=== PATIENT | female | born 1950 | race Caucasian/White ===

== ENCOUNTER 2017-04-04 13:01 | Emergency (ER) | payer BC ==
--- NOTE | 2017-04-04 14:01 | RAD ---
SINGLE VIEW OF THE CHEST: Comparison: None. History: Cough, left lower extremity swelling and pain. FINDINGS: Single view of the chest shows a normal sized cardiomediastinal silhouette with atherosclerotic calci fications in the aorta. There is no evidence of consolidation, mass, or pleural effusion. IMPRESSION: No evidence of acute cardiopulmonary disease. POS: [facility]
--- NOTE | 2017-04-04 14:55 | ULT ---
LEFT LOWER EXTREMITY VENOUS ULTRASOUND: Date: 04/04/17 HISTORY: Left lower extremity pain and swelling for 2-3 weeks. COMPARISON: None. TECHNIQUE: Multiplanar Godoy scale and color Doppler images were obtained in a left lower extremity venous ultra sound. Spectral analysis of the Doppler waveforms were performed. FINDINGS: There is significant thrombus in the left lower extremity. This involves the left common femoral vei n, profunda femoral vein, superficial femoral vein, and popliteal vein. These vessels show lack of fl ow and incomplete compression consistent with thrombus. The left posterior tibial vein and greater sa phenous vein show no evidence of thrombus. IMPRESSION: Extensive deep venous thrombosis in the left leg as above. POS: [facility]
[2017-04-04] MEDS ORDERED: Rivaroxaban 10 MG TAB ONE (15:04)
[2017-04-04 15:53] LABS: Anion Gap 15 mmol/L (10-20); BUN (Urea Nitrogen) 10 mg/dL (9.8-20.1); Calc. Creatinine Clearance 0 mL/min (70-130); Calcium 8.8 mg/dL (7.8-10.44); Carbon Dioxide 24 mmol/L (23-31); Chloride 104 mmol/L (98-107); Estimated GFR-MDRD 84; Glucose 124 mg/dL (80-115); Sodium 139 mmol/L (136-145)
== END 2017-04-04 15:54 | disposition home or self-care (01) ==
LOC: SCSER 13:01
DX: I82.412 Acute embolism and thrombosis of left femoral vein (principal); I82.432 Acute embolism and thrombosis of left popliteal vein; Z87.891 Personal history of nicotine dependence
CPT/HCPCS: 71045; 80048; 85379; 96360

== ENCOUNTER 2017-10-19 19:44 | Emergency (ER) | payer BC ==
[2017-10-19 20:36] LABS: #Basophils 0.1 thou/uL (0.0-0.2); #Eosinphils 0.2 thou/uL (0.0-0.7); #Lymphocytes 2.4 thou/uL (1.20-3.40); #Monocytes 0.9 thou/uL (0.11-0.59); #Neutrophils 8.8 thou/uL (1.40-6.50); %Basophils 0.8 % (0.0-1.0); %Eosinophils 1.5 % (0.0-10.0); %Lymphocytes 19.1 % (21.0-51.0); %Monocytes 7.6 % (0.0-10.0); %Neutrophils 71.1 % (42.0-75.0); ALT (SGPT) 13 U/L (8-55); AST (SGOT) 20 U/L (5-34); Albumin 3.9 g/dL (3.4-4.8); Alkaline Phosphatase 88 U/L (40-150); Anion Gap 15 mmol/L (10-20); BUN (Urea Nitrogen) 13 mg/dL (9.8-20.1); Bilirubin, Total 0.3 mg/dL (0.2-1.2); Calc. Creatinine Clearance 0 mL/min (70-130); Calcium 10.5 mg/dL (7.8-10.44); Carbon Dioxide 27 mmol/L (23-31); Chloride 98 mmol/L (98-107); Estimated GFR-MDRD 68; Globulin 3.6 g/dL (2.4-3.5); Glucose 94 mg/dL (80-115); Hemoglobin 8.9 g/dL (12.0-16.0); Hypochromia SLIGHT = 6-15 cells (100X) (0-5/hpf); MDiff Complete? YES; Mean Corpuscular HGB CONC 30.8 g/dL (32.0-36.0); Mean Corpuscular Hemoglobin 21.1 pg (27.0-31.0); Mean Corpuscular Volume 68.5 fL (78.0-98.0); Mean Platelet Volume 5.6 fL (7.4-10.4); Microcytosis SLIGHT = 6-15 cells (100X) (0-5/hpf); PLT Morphology Comment Appears Increased; Platelet Count 498 thou/uL (130-400); Protein, Total 7.5 g/dL (6.0-8.3); Red Blood Cell (RBC) Count 4.24 mill/uL (4.20-5.40); Sodium 136 mmol/L (136-145); White Blood Cell (WBC) Count 12.4 thou/uL (4.8-10.8)
[2017-10-19 20:37] LABS: CKMB 0.6 ng/mL (0-6.6); Troponin I Less than 0.010 ng/mL (< 0.028)
--- NOTE | 2017-10-19 20:47 | RAD ---
SINGLE VIEW OF THE CHEST: 10/19/17 COMPARISON: 04/04/17 HISTORY: Chronic cough. FINDINGS: Single view of the chest shows the cardiomediastinal silhouette which is upper limits of normal in si ze with atherosclerotic calcifications in the aorta. There is no evidence of consolidation, mass, or pleural effusion. IMPRESSION: No evidence of acute cardiopulmonary disease. POS: [facility]
--- NOTE | 2017-10-19 22:11 | CT ---
CT ANGIOGRAM THORAX WITH IV CONTRAST AND 3D RECONSTRUCTIONS 10/19/17 HISTORY: Chronic cough which has worsened today. History of DVT. COMPARISON: None available. FINDINGS: No filling defects are seen in the pulmonary arteries to suggest a pulmonary embolus. Mild vascular calcifications are seen in the coronary arteries as well as involving the region of the aortic arch. The thoracic aorta is normal in caliber without evidence of an aortic dissection. There is a small right pleural effusion with associated atelectasis. Atelectasis is also present at t he left lung base. There is a small subcentimeter hypodense nodule left lobe of the thyroid gland with an adjacent punct ate calcification. There is suggestion of a larger heterogeneous nodule in the inferior pole left lob e of the thyroid gland measuring 1.6 cm. Visualized upper abdomen demonstrates a small amount of intraperitoneal free fluid. There is fluid ad jacent to the dome of the liver laterally on the right with what appears to be contour abnormality of the liver in this region. This could be related to subcapsular fluid collection, but this is difficu lt to definitively determine. Similar finding is seen in the lateral aspect of the right hepatic lobe , but this could represent a small peripherally based hypodense nodule within the right hepatic lobe. Calcifications are seen in the region of the chloe hepatis which are likely related to gallbladder ca lculi in a decompressed gallbladder. IMPRESSION: 1. Thyroid nodules. Non-emergent thyroid ultrasound suggested. 2. Small amount of ascites in the limited visualized upper abdomen. There is question of a small subcapsular collection adjacent to the dome of the liver. This is difficult to further evaluate. 3. Cholelithiasis. 4. No CT evidence of a pulmonary embolus. 5. Bibasilar atelectasis with small right pleural effusion. 6. Subcentimeter too small to characterize hypodense lesion lateral segment left hepatic lobe wi th low density focus seen lateral aspect right hepatic lobe measuring 1.3 cm which may represent a pe ripherally located difficult to characterize hypodense lesion. This could be related to small amount of fluid adjacent to the right hepatic lobe as well. 7. Mild cardiomegaly. POS: [facility]
== END 2017-10-19 22:39 | disposition home or self-care (01) ==
LOC: SCSER 19:44
DX: J98.11 Atelectasis (principal); J90 Pleural effusion, not elsewhere classified; R18.8 Other ascites; D72.829 Elevated white blood cell count, unspecified; R05 Cough; D47.3 Essential (hemorrhagic) thrombocythemia; E04.1 Nontoxic single thyroid nodule; K76.89 Other specified diseases of liver; K80.20 Calculus of gallbladder without cholecystitis without obstruction; F41.9 Anxiety disorder, unspecified; Z79.01 Long term (current) use of anticoagulants; Z79.899 Other long term (current) drug therapy
CPT/HCPCS: 71045; 71275; 80053; 82553; 83880; 84484; 85025; 93005; 96360; 96361

== ENCOUNTER 2017-11-09 15:15 | Outpatient (CLI) | payer BC ==
[2017-11-09 17:26] LABS: Hemoglobin A1c 5.1 % (4.0-6.0)
[2017-11-09 17:33] LABS: #Eosinphils 0.1 thou/uL (0.0-0.7); #Lymphocytes 1.3 thou/uL (1.20-3.40); #Monocytes 0.8 thou/uL (0.11-0.59); #Neutrophils 10.3 thou/uL (1.40-6.50); %Basophils 0.3 % (0.0-1.0); %Eosinophils 0.6 % (0.0-10.0); %Lymphocytes 10.1 % (21.0-51.0); %Monocytes 6.6 % (0.0-10.0); %Neutrophils 82.4 % (42.0-75.0); Anisocytosis SLIGHT = 6-15 cells (100X) (0-5/hpf); Hemoglobin 10.6 g/dL (12.0-16.0); Hypochromia SLIGHT = 6-15 cells (100X) (0-5/hpf); MDiff Complete? YES; Mean Corpuscular HGB CONC 30.1 g/dL (32.0-36.0); Mean Corpuscular Hemoglobin 22.9 pg (27.0-31.0); Mean Corpuscular Volume 75.9 fL (78.0-98.0); Mean Platelet Volume 7.1 fL (7.4-10.4); PLT Morphology Comment Appears Increased; Platelet Count 402 thou/uL (130-400); Poikilocytosis SLIGHT = 6-15 cells (100X) (0-5/hpf); RBC Distribution Width 23.2 % (11.5-14.5); Red Blood Cell (RBC) Count 4.64 mill/uL (4.20-5.40); White Blood Cell (WBC) Count 12.5 thou/uL (4.8-10.8)
[2017-11-09 17:36] LABS: ALT (SGPT) 12 U/L (8-55); AST (SGOT) 23 U/L (5-34); Albumin 3.7 g/dL (3.4-4.8); Alkaline Phosphatase 92 U/L (40-150); Anion Gap 14 mmol/L (10-20); BUN (Urea Nitrogen) 10 mg/dL (9.8-20.1); Bilirubin, Total 0.6 mg/dL (0.2-1.2); Calc. Creatinine Clearance 0 mL/min (70-130); Calcium 10.1 mg/dL (7.8-10.44); Carbon Dioxide 27 mmol/L (23-31); Chloride 99 mmol/L (98-107); Estimated GFR-MDRD 72; Globulin 3.6 g/dL (2.4-3.5); Glucose 86 mg/dL (80-115); Protein, Total 7.3 g/dL (6.0-8.3); Sodium 136 mmol/L (136-145)
--- NOTE | 2017-11-09 17:51 | RAD ---
RADIOGRAPH CHEST 2 VIEWS: Date: 11/09/17 Time: 5:00 p.m. HISTORY: 67-year-old female with chronic cough. COMPARISON: 10/19/17 FINDINGS: There is minimal blunting of the bilateral posterior costophrenic angles, and mild blunting of the bi lateral lateral costophrenic angles, a possibly new finding compared to the previous single view stud y. No pulmonary edema, cardiomegaly, consolidation, or pneumothorax. IMPRESSION: 1. Small right pleural effusion and tiny left pleural effusion. 2. No acute pulmonary findings. JN [] POS: [facility]
--- NOTE | 2017-11-10 15:16 | EKG ---
Test Reason : Blood Pressure : / mmHG Vent. Rate : 095 BPM Atrial Rate : 095 BPM P-R Int : 132 ms QRS Dur : 074 ms QT Int : 338 ms P-R-T Axes : 024 037 036 degrees QTc Int : 424 ms Normal sinus rhythm Normal ECG When compared with ECG of 19-OCT-2017 19:59, (Unconfirmed) No significant change was found Confirmed by ALIZE RIVERA, SBrian ([id number]) on 11/10/2017 3:15:30 PM Referred By: CLAYTON Confirmed By:DR. Tereza HERRMANN MD
== END 2017-11-09 15:16 | disposition home or self-care (01) ==
LOC: LABBT 15:15
PROVIDERS: ATTEND Surgery
DX: Z01.818 Encounter for other preprocedural examination (principal); K63.89 Other specified diseases of intestine; J90 Pleural effusion, not elsewhere classified
CPT/HCPCS: 71046; 80053; 82378; 83036; 85025; 86850; 86900; 86901; 93005; 93010

== ENCOUNTER 2017-11-09 16:00 | Inpatient (IN) | payer BC, MEDICARE ==
[2017-11-09 16:28] VITALS: BMI 26.5
[2017-11-10] MEDS ORDERED: cefOXitin 2 GM VIAL ONE (12:25)
[2017-11-10] MEDS ORDERED: Sodium Chloride 0.9% 100 ML ONE (12:25)
[2017-11-10] MEDS ORDERED: Fentanyl 250 MCG/5 ML VIAL ONE (12:29)
[2017-11-10] MEDS ORDERED: Albumin 5% 0 ML ONE (12:29)
[2017-11-10] MEDS ORDERED: Midazolam HCl 2 mg/2 ml Vial ONE (12:43)
[2017-11-10] MEDS ORDERED: SUGAMMADEX SODIUM 500 MG/5 ML VIAL ONE (14:09)
[2017-11-10] MEDS ORDERED: SUGAMMADEX SODIUM 200 MG/2 ML VIAL ONE (14:09)
[2017-11-10] MEDS ORDERED: Promethazine HCl 25 MG/ML VIAL IM PRN ×3 (14:16→15:17)
[2017-11-10] MEDS ORDERED: HYDROmorphone 2 MG/ML VIAL SLOW IVP PRN (14:16)
[2017-11-10] MEDS ORDERED: Ondansetron HCl/PF 4 MG/2 ML Vial IVP PRN ×3 (14:16→15:17)
[2017-11-10] MEDS ORDERED: Promethazine HCl 25 MG/ML VIAL SLOW IVP PRN (14:16)
[2017-11-10] MEDS ORDERED: hydrALAZINE 20 MG/ML VIAL SLOW IVP PRN (14:22)
--- NOTE | 2017-11-10 14:26 | OP ---
PREOPERATIVE DIAGNOSIS: Obstructing colon cancer. SURGEON: Inder Bloom M.D. PROCEDURE PERFORMED: Exploratory laparotomy, liver biopsy, biopsy of peritoneal implants, loop ileos sruthi. INDICATIONS: A 67-year-old female who had a colonoscopy yesterday for anemia and was found to have a complete obstruction at the hepatic flexure. FINDINGS: Advance carcinomatosis. Her liver was completely replaced with tumor. The pelvis was ful l of tumor, multiple peritoneal implants. PROCEDURE: After informed consent was obtained, the patient was taken to the operating room, given g eneral endotracheal anesthesia, placed in the supine position. The abdomen was prepped and draped in usual fashion. Midline incision was performed. The subcu divided sharply. The fascia incised and her liver was completely white with tumor. In fact, the colon and the liver were fused. I could not even tell what was colon and what was liver. The peritoneal surface had thousands of peritoneal imp lants and the pelvis was completely encompassed in tumor. Because of the obstruction, elected to do a loop ileostomy. First of all, piece of the liver was sent for biopsy as well as one of the periton eal implants. Then, I was finally able to find part of the right colon and found the terminal ileum and then just put a [place] on the ileum to veronica it. The skin was grasped with a Jan clamp in the right lower quadrant and a circular skin incision performed. Subcutaneous was excised. The fascia incised in a cruciate manner and dilated to 3 fingers. The ileum was brought in through this opening and secured to the posterior fascia with interrupted 3-0 Vicryls. The abdomen was thoroughly irriga kenny with saline and hemostasis assured. The fascia then closed with a running looped #1 PDS. Hemost asis achieved with electrocautery. Subcutaneous closed with interrupted 3-0 Vicryl and the skin clos ed with skin jessee. Sterile bandage was applied. Then, the ileum was secured to the anterior fasc ia with interrupted 3-0 Vicryl circumferentially. A red rubber catheter was brought through the mese ntery just below the ileum and secured to the skin with interrupted 2-0 Prolene suture to act as a br idge. Then, the ileum was opened with electrocautery and the ostomy matured with interrupted 3-0 Karan ryl sutures. A wafer was applied as well as the bag. The patient tolerated the procedure well and w as transferred to recovery in fair condition.
[2017-11-10] MEDS ORDERED: Fentanyl 100 MCG/2 ML VIAL ONE ×2 (14:39→15:30)
[2017-11-10] MEDS ORDERED: Ondansetron HCl/PF 4 MG/2 ML Vial ONE (15:12)
[2017-11-10] MEDS ORDERED: Lidocaine 1% PF 5 ML VIAL ONE (15:12)
[2017-11-10] MEDS ORDERED: PHENYLEPHRINE-NS 100 MCG/ML 10 ML SYRINGE ONE (15:12)
[2017-11-10] MEDS ORDERED: PROPOFOL 200 MG/20 ML VIAL ONE (15:12)
[2017-11-10] MEDS ORDERED: ePHEDrine/0.9% NaCl/PF SYRINGE 50 mg/10 ml ONE (15:12)
[2017-11-10] MEDS ORDERED: Ketorolac Tromethamine 30 MG/ML VIAL ONE (15:12)
[2017-11-10] MEDS ORDERED: diphenhydrAMINE 50 MG/ML VIAL IVP PRN (15:17)
[2017-11-10] MEDS ORDERED: Zolpidem Tartrate 5 MG TAB PO PRN (15:17)
[2017-11-10] MEDS ORDERED: diphenhydrAMINE 25 MG CAP PO PRN (15:17)
[2017-11-10] MEDS ORDERED: diphenhydrAMINE 50 MG/ML VIAL IM PRN (15:17)
[2017-11-10] MEDS ORDERED: Naloxone HCl 0.4 mg/ml Vial IV PRN (15:17)
[2017-11-10] MEDS ORDERED: Morphine CADD 1 MG/ML CADD IVPB PRN (15:17)
[2017-11-10] MEDS ORDERED: Communication Order-Pharmacy FS SCH (15:30)
[2017-11-10] MEDS: Sodium Chloride 0.9% 1,000 ML IV SCH ×2 (17:19→21:30)
[2017-11-10] MEDS: Acetaminophen 1,000 MG in Premix Bag 1 BAG IVPB SCH ×2 (17:45→23:13)
[2017-11-10] MEDS: Ketorolac Tromethamine 30 MG/ML VIAL IVP SCH ×2 (17:45→23:15)
[2017-11-10] MEDS: cefOXitin 2 GM in Sodium Chloride 0.9% 100 ML IVPB SCH (19:39)
[2017-11-10] MEDS: Famotidine/PF 20 mg/2ml Vial SLOW IVP SCH (19:39)
[2017-11-10] MEDS: Famotidine 20 MG TAB PO SCH (19:40)
[2017-11-11] MEDS: cefOXitin 2 GM in Sodium Chloride 0.9% 100 ML IVPB SCH (03:04)
[2017-11-11] MEDS: Ketorolac Tromethamine 30 MG/ML VIAL IVP SCH ×4 (05:25→23:02)
[2017-11-11] MEDS: Acetaminophen 1,000 MG in Premix Bag 1 BAG IVPB SCH ×2 (05:25→12:05)
[2017-11-11 06:17] LABS: Anion Gap 12 mmol/L (10-20); BUN (Urea Nitrogen) 12 mg/dL (9.8-20.1); Calc. Creatinine Clearance 66 mL/min (70-130); Calcium 8.1 mg/dL (7.8-10.44); Carbon Dioxide 23 mmol/L (23-31); Chloride 105 mmol/L (98-107); Estimated GFR-MDRD 69; Glucose 98 mg/dL (80-115); Potassium 4.4 mmol/L (3.5-5.1); Sodium 136 mmol/L (136-145)
[2017-11-11 07:45] LABS: #Lymphocytes 0.8 thou/uL (1.20-3.40); #Monocytes 0.9 thou/uL (0.11-0.59); #Neutrophils 8.3 thou/uL (1.40-6.50); %Eosinophils 0.1 % (0.0-10.0); %Monocytes 8.6 % (0.0-10.0); %Neutrophils 83.3 % (42.0-75.0); Hemoglobin 9.7 g/dL (12.0-16.0); Mean Corpuscular HGB CONC 30.4 g/dL (32.0-36.0); Mean Corpuscular Hemoglobin 23.6 pg (27.0-31.0); Mean Corpuscular Volume 77.6 fL (78.0-98.0); Mean Platelet Volume 7.1 fL (7.4-10.4); Platelet Count 305 thou/uL (130-400); RBC Distribution Width 22.3 % (11.5-14.5); Red Blood Cell (RBC) Count 4.13 mill/uL (4.20-5.40)
[2017-11-11 07:46] LABS: Band 6 % (5-11); Lymphocytes 9 % (21-51); MDiff Complete? YES; Monocytes 6 % (0-10); Neutrophil 79 % (42-75)
[2017-11-11] MEDS: Sodium Chloride 0.9% 1,000 ML IV SCH ×3 (09:07→23:04)
[2017-11-11] MEDS: Enoxaparin Sodium 40 MG/0.4 ML SYRINGE SC SCH (09:08)
[2017-11-11] MEDS: Famotidine/PF 20 mg/2ml Vial SLOW IVP SCH ×2 (09:08→20:15)
[2017-11-11] MEDS: Famotidine 20 MG TAB PO SCH ×2 (09:13→20:20)
--- NOTE | 2017-11-11 11:27 | CT ---
CONTRAST ENHANCED CT OF THE CHEST, ABDOMEN AND PELVIS: History: Carcinomatosis with obstruction. Technique: Contrast enhanced images of the chest, abdomen, and pelvis were obtained. FINDINGS: Images demonstrate small bilateral pleural effusions. Bibasilar areas of atelectasis seen. The abdomen and pelvis demonstrates a moderate amount of free intraperitoneal air. A small amount of intraperitoneal fluid is seen. Along much of the anterior peritoneum there is a large area of soft tissue density concerning for ext ensive intraperitoneal carcinomatosis. A right lower abdominal anterior ileostomy is seen. The liver demonstrates no definite evidence of large intraparenchymal masses. No evidence of intrahep atic biliary dilatation is seen. The gallbladder contains numerous gallstones. The spleen contains some hypodense areas which may represent possible splenic metastases or cysts. The small bowel is moderately dilated. The colon is decompressed and does not have any evidence of ob vious obstruction. The region of the rectum and sigmoid contains a large heterogeneous colonic mass. IMPRESSION: 1. Ileostomy changes. 2. Bilateral pleural effusions. 3. Large amount of soft tissue density within the peritoneum concerning for extensive intraperitoneal carcinomatosis. 4. Possible rectal or sigmoid colonic mass. POS: [facility]
--- NOTE | 2017-11-11 12:21 | CON ---
DATE OF CONSULTATION: 11/10/2017 REASON FOR CONSULTATION: Metastatic cancer. HISTORY OF PRESENT ILLNESS: A 67-year-old female with a history of ongoing iron deficiency anemia and DVT with newly found metastatic cancer. The patient saw me in the clinic on 10/25/2017 f or evaluation of iron deficiency anemia that was ongoing and unresponsive to oral iron. She denied a ny blood in the stool and had denied any abdominal symptoms. Colonoscopy was scheduled for 8 to evaluate for a cause. I had her scheduled for IV iron replacement in the clinic. On colonoscop y, the patient was found to have a complete obstruction of her colon at the hepatic flexure. She was then taken to the OR on 11/10/[address] Inder Bloom. Intraoperatively, Dr. Bloom stated the fascia was incised and her liver was completely white with tumor and the colon and liver were fused. He co uld not tell what was colon and what was liver. The peritoneal surface had thousands of peritoneal i mplants and the pelvis was completely encompassed in tumor. Due to the obstruction, Dr. Bloom perfor med a loop ileostomy. He biopsied the liver and one of the peritoneal implants and sent these to [facility]. I spoke with the patient and her at the bedside and they are very distraught over th is unexpected diagnosis. She is still recovering from surgery and is very sore in her abdomen. The patient also has a history of DVT in 03/2017 and took 6 months of Xarelto finishing on 10/22/2017. I t is likely this cancer was already brewing when she had this blood clot and therefore she should pro bably be restarted on full dose anticoagulation. REVIEW OF SYSTEMS: Ten-point review of systems negative except as per HPI. PAST MEDICAL HISTORY: Anemia, DVT. PAST SURGICAL HISTORY: Tonsillectomy in 1968, tubal ligation in 1992, cyst removal in 1990. FAMILY HISTORY: Heart attacks. SOCIAL HISTORY: The patient is a former smoker, half pack per day. Rare alcohol. She is wi th 2 children and lives with her . ALLERGIES: No known drug allergies. MEDICATIONS: Reviewed. LABORATORY DATA: White blood cells 10.0, hemoglobin 9.7, hematocrit 32.0, MCV 77.6, platelets 305,00 0, BUN 12, creatinine 0.83. IMAGING DATA: Chest, abdomen and pelvis CT being performed this morning. ASSESSMENT AND PLAN: A 67-year-old female with history of iron deficiency anemia, deep vei n thrombosis, found to have extensive metastatic cancer in the abdomen. The patient had a complete o bstruction of her colon at the hepatic flexure with extensive peritoneal disease. A biopsy was perfo rmed of the liver and a peritoneal implant and sent to pathology. I will follow up these final path results. The patient has a history of DVT of the leg in 03/2017 and received 6 months of Xarelto. D ue to the patient's extensive metastatic disease in the abdomen, the patient likely had this cancer w hen she had her blood clot and therefore should be placed back in anticoagulation. I would advise re starting Xarelto. I discussed the need for further workup and staging and to follow up final patholo gy with the patient and her before I can speak to them about possible treatment options. How ever, I did explain to them that this is stage IV disease and as such will not be curable. I will co britni to follow this patient. Thank you for the consult.
--- NOTE | 2017-11-11 17:10 | PRG ---
DATE OF SERVICE: 11/11/2017 SUBJECTIVE: Layla Davey is a 67-year-old female who is hospital day #2, postop day #1 status post ex ploratory laparotomy, liver biopsy, biopsy of peritoneal implants and loop ileostomy with Dr. Bloom. There were no acute overnight events. The patient has been seen and evaluated by Oncology. Of note , the patient does have a history of DVT in 03/2017. With her active cancer, Oncology recommends res uming anticoagulation. Upon my evaluation this morning, the patient states that her pain is well con trolled on her WEBSPHERE PORTAL ARCHITECT and she vocalized no complaints. She is ambulating. OBJECTIVE: VITAL SIGNS: Temperature 97.6, pulse 80, respiration 14, O2 sat 94%-95% on room air, blood pressure 132/78. GENERAL: Resting in bed in no acute distress. PULMONARY: Normal work of breathing. Symmetric rise. CARDIOVASCULAR: Regular rate and rhythm. GASTROINTESTINAL: Abdomen is soft with appropriate generalized tenderness. Surgical dressing had so me serosanguineous strike through. Ostomy appears pink and viable. There is liquid stool in the bag . LABORATORY DATA: WBC 10.0, hemoglobin 9.7, hematocrit 32, platelet count 305. Sodium 136, potassium 4.4, chloride 105, carbon dioxide 23, BUN 12, creatinine 0.83, glucose 98. ASSESSMENT: 1. Microcytic, microchromic anemia. 2. Obstructive metastatic colon cancer. 3. Postop day #1 status post exploratory laparotomy, liver biopsy, loop ileostomy. 4. Acute pain. 5. History of recent deep venous thrombosis. PLAN: The patient should continue incentive spirometry, pulmonary toileting. Walking program and co ntinue to encourage mobility. Continue WEBSPHERE PORTAL ARCHITECT at this time. The patient is okay for ice chips. If she continues to do well, we will advance diet in a.m. Followup a.m. labs. If H and H remained stable, we will resume full anticoagulation as recommended by Oncology. Follow up pathology. Plan of care was discussed with the patient and family at bedside. All questions were answered at the time of thi s dictation. The patient was seen and evaluated with Dr. Deleon.
[2017-11-12] MEDS: Ketorolac Tromethamine 30 MG/ML VIAL IVP SCH (05:32)
[2017-11-12 06:12] LABS: Anion Gap 13 mmol/L (10-20); BUN (Urea Nitrogen) 12 mg/dL (9.8-20.1); Calc. Creatinine Clearance 79 mL/min (70-130); Calcium 8.3 mg/dL (7.8-10.44); Carbon Dioxide 19 mmol/L (23-31); Chloride 108 mmol/L (98-107); Estimated GFR-MDRD 85; Magnesium 2.1 mg/dL (1.6-2.6); Potassium 4.1 mmol/L (3.5-5.1); Sodium 136 mmol/L (136-145)
[2017-11-12 06:18] LABS: Glucose 54 mg/dL (80-115); Phosphorus 1.9 mg/dL (2.3-4.7)
[2017-11-12 06:47] LABS: #Eosinphils 0.1 thou/uL (0.0-0.7); #Lymphocytes 0.9 thou/uL (1.20-3.40); #Monocytes 0.6 thou/uL (0.11-0.59); #Neutrophils 7.6 thou/uL (1.40-6.50); %Basophils 0.4 % (0.0-1.0); %Lymphocytes 9.2 % (21.0-51.0); %Monocytes 6.8 % (0.0-10.0); %Neutrophils 82.6 % (42.0-75.0); Hemoglobin 9.9 g/dL (12.0-16.0); Hypochromia SLIGHT = 6-15 cells (100X) (0-5/hpf); MDiff Complete? YES; Mean Corpuscular HGB CONC 29.8 g/dL (32.0-36.0); Mean Corpuscular Hemoglobin 23.4 pg (27.0-31.0); Mean Corpuscular Volume 78.7 fL (78.0-98.0); Mean Platelet Volume 6.9 fL (7.4-10.4); Microcytosis SLIGHT = 6-15 cells (100X) (0-5/hpf); Platelet Count 326 thou/uL (130-400); RBC Distribution Width 22.7 % (11.5-14.5); Red Blood Cell (RBC) Count 4.23 mill/uL (4.20-5.40); White Blood Cell (WBC) Count 9.2 thou/uL (4.8-10.8)
[2017-11-12] MEDS ORDERED: Dextrose 50% Abboject 50 ML SYRINGE IVP PRN (06:59)
[2017-11-12] MEDS ORDERED: Dextrose 5% in Water 1,000 ML IV PRN ×2 (06:59→07:36)
[2017-11-12] MEDS ORDERED: NACL IVPB SCH (07:00)
[2017-11-12] MEDS ORDERED: SODIUM PHOSPHATE IVPB SCH (07:00)
[2017-11-12] MEDS ORDERED: DEXTROSE IVPB SCH (07:00)
[2017-11-12] MEDS ORDERED: Dextrose 5 %-0.45 % NaCl 1,000 ML IV SCH (07:45)
[2017-11-12] MEDS ORDERED: Sodium Phosphate 15 MMOL in Sodium Chloride 0.9% 250 ML 250 ML IVPB SCH (08:00)
[2017-11-12] MEDS: Famotidine/PF 20 mg/2ml Vial SLOW IVP SCH ×2 (08:23→21:45)
[2017-11-12] MEDS: Famotidine 20 MG TAB PO SCH ×2 (09:10→21:33)
[2017-11-12] MEDS: Enoxaparin Sodium 40 MG/0.4 ML SYRINGE SC SCH (09:11)
[2017-11-12] MEDS ORDERED: traMADol HCl 50 MG TAB PO PRN ×2 (09:50)
[2017-11-12] MEDS: Acetaminophen 500 MG TAB PO SCH ×3 (10:53→21:32)
[2017-11-12] MEDS: Ibuprofen 600 MG TAB PO SCH ×2 (10:53→18:06)
--- NOTE | 2017-11-12 16:45 | PRG ---
DATE OF SERVICE: 11/12/2017 SUBJECTIVE: The patient is hospital day 3, postop day 2 status post exploratory laparotomy where she underwent liver biopsy, biopsy of peritoneal implants and loop ileostomy by Dr. Bloom. Overnight, t he patient had no issues. Her pain is well controlled to the point that we will switch her to p.o. p ain medicine as it was noted that she barely used her [employer] in the last 12 hours. She has had no nause a or vomiting and states that she is passing gas. OBJECTIVE: VITAL SIGNS: Temperature is 98.0, heart rate 81, blood pressure 122/62, respirations 12, oxygen satu ration 93% on room air. GENERAL: The patient is resting comfortably in bed and appears to be in no acute distress. LUNGS: Clear to auscultation. HEART: Regular rate and rhythm. ABDOMEN: Soft with minimal tenderness to palpation. Her postop dressing is clean, dry and intact. Her ostomy has air and liquid stool in the bag. EXTREMITIES: Neurovascularly intact x4. LABORATORY DATA: White blood cell count 9.2, hemoglobin 9.9, hematocrit 33.3, platelets 326,000. So dium 136, potassium 4.1, chloride 108, CO2 19, BUN 12, creatinine 0.69, glucose 54, magnesium 2.1, ph osphorus 1.9. ASSESSMENT: 1. Microcytic microchromic anemia. 2. Obstructive metastatic colon cancer. 3. Status post laparotomy, liver biopsy and loop ileostomy. PLAN: Will be to continue supportive care and await pathology results and management per the primary surgeon.
[2017-11-13] MEDS: Ibuprofen 600 MG TAB PO SCH ×3 (01:54→17:00)
[2017-11-13] MEDS: Acetaminophen 500 MG TAB PO SCH ×4 (05:12→21:12)
[2017-11-13] MEDS: Famotidine/PF 20 mg/2ml Vial SLOW IVP SCH ×2 (09:10→20:29)
[2017-11-13] MEDS: Enoxaparin Sodium 40 MG/0.4 ML SYRINGE SC SCH (09:14)
[2017-11-13] MEDS: Famotidine 20 MG TAB PO SCH ×2 (09:14→20:29)
[2017-11-13] MEDS ORDERED: HYDROcodone/Acetaminophen 10/325 mg Tablet PO PRN ×2 (09:33)
[2017-11-14] MEDS: Acetaminophen 500 MG TAB PO SCH ×2 (03:01→09:21)
[2017-11-14] MEDS: Ibuprofen 600 MG TAB PO SCH ×2 (03:01→09:21)
[2017-11-14] MEDS: Enoxaparin Sodium 40 MG/0.4 ML SYRINGE SC SCH (09:18)
[2017-11-14] MEDS: Famotidine 20 MG TAB PO SCH (09:21)
[2017-11-14] MEDS: Famotidine/PF 20 mg/2ml Vial SLOW IVP SCH (09:22)
[2017-11-14 11:56] VITALS: BP 127/76; TEMP 98
--- NOTE | 2017-11-14 12:44 | PRG ---
DATE OF SERVICE: 11/14/2017 SUBJECTIVE: The patient feels pretty good. She is tolerating a regular diet. She feels stronger. Ostomy is working well. They still have not given her any teaching on it. OBJECTIVE: VITAL SIGNS: Temperature 98, pulse 75, blood pressure 127/76. GENERAL: She is awake, alert, does not appear to be in any distress. HEENT: Unremarkable. LUNGS: Clear. HEART: Regular rate and rhythm. ABDOMEN: Somewhat distended. Incision is clean and dry. The ostomy is pink and functioning well. ASSESSMENT: Doing well. PLAN: Ostomy teaching. Once she is comfortable with that, we will allow her to go home.
--- NOTE | 2017-11-15 02:09 | DIS ---
DISCHARGE DIAGNOSIS: Obstructing colon cancer with widely metastatic disease to peritoneal surfaces, pelvis and liver. PROCEDURES DURING ADMISSION: Exploratory laparotomy, diverting loop ileostomy, biopsy of multiple ca rcinomatosis implants. HOSPITAL COURSE: The patient was admitted, initially taken to the operating room, it was found that her liver was just about replaced with tumor, that the colon was basically not visible because of the metastatic disease to the liver, implants throughout the peritoneal surface and into the pelvis. Bi opsies were obtained. The pathology came back that it was a poorly differentiated adenocarcinoma con sistent with probable colon primary. She recovered well. Her bowel function returned. She is rachel ating a regular diet. She has been taught care of her ostomy. She will follow up with me on Monday for staple removal.
== END 2017-11-14 15:50 | disposition home or self-care (01) | DRG 330 ==
LOC: SURG B 11-10 11:06 → SURG A 11-10 15:57 → EDSTATUS 11-10 16:00
PROVIDERS: ADMIT Surgery; ATTEND Surgery
PROC: 0D1B0Z4 Bypass Ileum to Cutaneous, Open Approach (ICD-10-PCS; principal; 2017-11-10)
PROC: 0FB00ZX Excision of Liver, Open Approach, Diagnostic (ICD-10-PCS; 2017-11-10)
PROC: 0DBW0ZX Excision of Peritoneum, Open Approach, Diagnostic (ICD-10-PCS; 2017-11-10)
DX: C18.3 Malignant neoplasm of hepatic flexure (principal); C78.7 Secondary malignant neoplasm of liver and intrahepatic bile duct; C78.6 Secondary malignant neoplasm of retroperitoneum and peritoneum; D50.9 Iron deficiency anemia, unspecified; Z86.718 Personal history of other venous thrombosis and embolism; Z87.891 Personal history of nicotine dependence
CPT/HCPCS: 36415; 71046; 71260; 74177; 80048; 80053; 82378; 83036; 83735; 84100; 85025; 86850; 86900; 86901; 88305; 88341; 88342; 93005; 93010; J0131; J0694; J1650; J1885; J2001; J2250; J2274; J2405; J2704; J3010; J7042; J7050; P9045; S0028

== ENCOUNTER 2017-11-30 15:23 | Outpatient (CLI) | payer BC ==
[2017-11-30 15:48] LABS: #Eosinphils 0.1 thou/uL (0.0-0.7); #Lymphocytes 1.2 thou/uL (1.20-3.40); #Monocytes 0.8 thou/uL (0.11-0.59); #Neutrophils 6.5 thou/uL (1.40-6.50); %Basophils 0.2 % (0.0-1.0); %Eosinophils 1.1 % (0.0-10.0); %Lymphocytes 14.3 % (21.0-51.0); %Monocytes 9.5 % (0.0-10.0); %Neutrophils 74.8 % (42.0-75.0); Hemoglobin 10.7 g/dL (12.0-16.0); Mean Corpuscular HGB CONC 30.9 g/dL (32.0-36.0); Mean Corpuscular Hemoglobin 24.1 pg (27.0-31.0); Mean Corpuscular Volume 77.9 fL (78.0-98.0); Mean Platelet Volume 7.4 fL (7.4-10.4); Platelet Count 368 thou/uL (130-400); Red Blood Cell (RBC) Count 4.42 mill/uL (4.20-5.40); White Blood Cell (WBC) Count 8.7 thou/uL (4.8-10.8)
[2017-11-30 16:07] LABS: ALT (SGPT) 20 U/L (8-55); AST (SGOT) 25 U/L (5-34); Albumin 3.3 g/dL (3.4-4.8); Alkaline Phosphatase 126 U/L (40-150); Anion Gap 12 mmol/L (10-20); BUN (Urea Nitrogen) 12 mg/dL (9.8-20.1); Bilirubin, Total 0.3 mg/dL (0.2-1.2); Calc. Creatinine Clearance 0 mL/min (70-130); Carbon Dioxide 27 mmol/L (23-31); Chloride 101 mmol/L (98-107); Estimated GFR-MDRD 60; Globulin 2.6 g/dL (2.4-3.5); Glucose 130 mg/dL (80-115); Potassium 4.2 mmol/L (3.5-5.1); Protein, Total 5.9 g/dL (6.0-8.3); Sodium 136 mmol/L (136-145)
[2017-11-30 16:39] LABS: Anisocytosis MODERATE=16-30 cells (100X) (0-5/hpf); Hypochromia SLIGHT = 6-15 cells (100X) (0-5/hpf); MDiff Complete? YES; Microcytosis SLIGHT = 6-15 cells (100X) (0-5/hpf); PLT Morphology Comment Appears Adequate; Polychromasia SLIGHT = 2-3 cells (100X) (0-2/hpf)
--- NOTE | 2017-12-02 08:36 | EKG ---
Test Reason : Blood Pressure : / mmHG Vent. Rate : 086 BPM Atrial Rate : 086 BPM P-R Int : 134 ms QRS Dur : 072 ms QT Int : 346 ms P-R-T Axes : 025 033 044 degrees QTc Int : 414 ms Normal sinus rhythm Normal ECG When compared with ECG of 09-NOV-2017 16:51, No significant change was found Confirmed by LUDWIG GRIMM ([id number]) on 12/02/2017 8:36:29 AM Referred By: CLAYTON Confirmed By:LUDWIG GRIMM
== END 2017-11-30 15:24 | disposition home or self-care (01) ==
LOC: LABBT 15:23
PROVIDERS: ATTEND Surgery
DX: Z01.818 Encounter for other preprocedural examination (principal); C18.9 Malignant neoplasm of colon, unspecified
CPT/HCPCS: 80053; 85025; 93005; 93010

== ENCOUNTER 2017-12-01 11:35 | Day surgery (SDC) | payer BC ==
[2017-11-30 15:42] VITALS: BMI 26.5
[2017-12-01] MEDS ORDERED: CEFAZOLIN/Water 2 GM/20 ML SYRINGE ONE (12:20)
[2017-12-01] MEDS ORDERED: Bupivacaine/Epinephrine 0.25% 30 ML VIAL ONE (12:24)
[2017-12-01] MEDS ORDERED: Fentanyl 100 MCG/2 ML VIAL ONE (12:30)
--- NOTE | 2017-12-01 13:53 | OP ---
DATE OF PROCEDURE: 12/01/2017 PREOPERATIVE DIAGNOSIS: Metastatic colon cancer. SURGEON: Inder Bloom M.D. PROCEDURE PERFORMED: MediPort placement. INDICATIONS: A 67-year-old female with metastatic colon cancer needs access for chemo. FINDINGS: I really could not get any good flow on the left subclavian. I was able to get a good willow kflow of venous blood on the right subclavian. PROCEDURE: After informed consent was obtained, the patient was taken to the operating room. She wa s given general endotracheal anesthesia. She was placed in the supine position. Her chest and neck were prepped and draped in usual fashion. Local anesthesia infiltrated subcutaneously and deep and a n introducer needle was inserted when the patient was in Trendelenburg position on the left subclavia n area. I really could never get any backflow of blood. I moved to the right side. There I got goo d backflow of venous blood. J-wire threaded easily. Fluoroscopy initially showed the wire was going up the neck, was able to reposition it and get it down into the superior vena cava. Then the skin a nd subcu was anesthetized and a transverse chest wall incision was performed. The subcu divided suzy ply with electrocautery down to the pectoralis fascia and a pocket created sharply on the pectoralis fascia. The tunneling device used to tunnel the catheter in the subcu between the 2 incisions. It w as then connected to the MediPort and the MediPort system was flushed with heparinized saline. Then the MediPort was secured to the pectoralis fascia with interrupted 2-0 Prolene suture. The MediPort catheter was cut to size and the peel-away introducer inserted over the wire then the wire was remove d and the catheter inserted through the peel-away introducer. Again x-ray was performed, showed good placement in superior vena cava. The subcu was closed with interrupted 3-0 Vicryl. Skin closed wit h interrupted 4-0 Rapide. Dermabond applied. The system was accessed with a [place] needle. Good willow kflow of venous blood and flushed with heparinized saline. Hemostasis was assured. Sponge and needl e count verified correct x2.
[2017-12-01] MEDS ORDERED: Lidocaine 1% PF 5 ML VIAL ONE (14:26)
[2017-12-01] MEDS ORDERED: Metoclopramide HCl 10 MG/2 ML VIAL ONE (14:26)
[2017-12-01] MEDS ORDERED: Glycopyrrolate 0.2 MG/ML 5 ML SYRINGE ONE (14:26)
[2017-12-01] MEDS ORDERED: PROPOFOL 200 MG/20 ML VIAL ONE (14:26)
[2017-12-01] MEDS ORDERED: Ondansetron HCl/PF 4 MG/2 ML Vial ONE (14:26)
--- NOTE | 2017-12-01 14:37 | RAD ---
AP VIEW CHEST STATUS POST MEDIPORT PLACEMENT: DATE: 12/01/2017. COMPARISON: Comparison is made to previous exam from 11/09/2017. FINDINGS: AP view chest demonstrates placement of a right subclavian MediPort catheter, distal tip overlying th e right atrium. No evidence of hemo- or pneumothorax seen. Mild cardiomegaly is seen. Calcification of the aorta is noted. No evidence of effusions, pneumonia, or pneumothorax seen. IMPRESSION: Mild cardiomegaly; otherwise, unremarkable AP view chest. POS: [facility]
== END 2017-12-01 15:36 | disposition home or self-care (01) ==
LOC: SDC 11:35
PROVIDERS: ATTEND Surgery
PROC: 02HV33Z Insertion of Infusion Device into Superior Vena Cava, Percutaneous Approach (ICD-10-PCS; principal; 2017-12-01)
DX: C18.9 Malignant neoplasm of colon, unspecified (principal); I10 Essential (primary) hypertension; Z87.891 Personal history of nicotine dependence; Z79.899 Other long term (current) drug therapy; D50.0 Iron deficiency anemia secondary to blood loss (chronic)
CPT/HCPCS: 36415; 71045; 80053; 82248; 82378; 82728; 83540; 83550; 83615; 84100; 84550; C1788; J1642; J2001; J2405; J2704; J2765; J3010

== ENCOUNTER 2018-02-19 15:51 | Emergency (ER) | payer BC | END 2018-02-19 17:06 | disposition left against medical advice (07) | LOC: ERS 15:51 | DX: Z53.21 Procedure and treatment not carried out due to patient leaving prior to being seen by health care provider (principal) ==

== ENCOUNTER 2018-02-19 19:49 | Observation (INO) | payer BC ==
[2018-02-19] MEDS ORDERED: Pantoprazole 40 MG VIAL ONE (20:21)
[2018-02-19 20:41] LABS: PTT 27.7 SEC (22.9-36.1); Prothrombin Time 13.4 SEC (12.0-14.7)
[2018-02-19 20:44] LABS: #Basophils 0.1 thou/uL (0.0-0.2); #Lymphocytes 1.5 thou/uL (1.20-3.40); #Monocytes 0.2 thou/uL (0.11-0.59); #Neutrophils 5.4 thou/uL (1.40-6.50); %Basophils 0.7 % (0.0-1.0); %Eosinophils 0.6 % (0.0-10.0); %Lymphocytes 20.7 % (21.0-51.0); %Monocytes 2.7 % (0.0-10.0); %Neutrophils 75.3 % (42.0-75.0); Anisocytosis MODERATE=16-30 cells (100X) (0-5/hpf); Hemoglobin 11.6 g/dL (12.0-16.0); Hypochromia SLIGHT = 6-15 cells (100X) (0-5/hpf); MDiff Complete? YES; Macrocytosis SLIGHT = 6-15 cells (100X) (0-5/hpf); Mean Corpuscular Volume 81.1 fL (78.0-98.0); Mean Platelet Volume 6.4 fL (7.4-10.4); Microcytosis SLIGHT = 6-15 cells (100X) (0-5/hpf); Platelet Count 116 thou/uL (130-400); Platelet Morphology Comment Appears Decreased; RBC Distribution Width 19.9 % (11.5-14.5); Red Blood Cell (RBC) Count 4.47 mill/uL (4.20-5.40); White Blood Cell (WBC) Count 7.2 thou/uL (4.8-10.8)
[2018-02-19 20:51] LABS: ALT (SGPT) 29 U/L (8-55); AST (SGOT) 37 U/L (5-34); Albumin 3.5 g/dL (3.4-4.8); Alkaline Phosphatase 183 U/L (40-150); Anion Gap 14 mmol/L (10-20); BUN (Urea Nitrogen) 14 mg/dL (9.8-20.1); Bilirubin, Total 0.3 mg/dL (0.2-1.2); Calc. Creatinine Clearance 0 mL/min (70-130); Calcium 9.7 mg/dL (7.8-10.44); Carbon Dioxide 25 mmol/L (23-31); Chloride 104 mmol/L (98-107); Estimated GFR-MDRD 79; Globulin 3.3 g/dL (2.4-3.5); Glucose 132 mg/dL (80-115); Lipase 126 U/L (8-78); Protein, Total 6.8 g/dL (6.0-8.3); Sodium 139 mmol/L (136-145)
[2018-02-20] MEDS ORDERED: Acetaminophen 325 MG TAB PO PRN (02:47)
[2018-02-20] MEDS ORDERED: Sodium Chloride 0.9% 1,000 ML IV SCH (03:00)
--- NOTE | 2018-02-20 03:55 | HP ---
CHIEF COMPLAINT: Bleeding from ileostomy. HISTORY OF PRESENT ILLNESS: This patient is a 67-year-old female who previously had some anemia worked up with colonoscopy which found an obstructing lesion in the hepatic flexure, and the patient saw Dr. Bloom for surgical excision of the obstructed portion of the colon. However, when the peritoneum was entered, the patient had significant carcinomatosis. She had biopsies obtained, which revealed poorly differentiated adenocarcinoma consistent with colon primary. The patient was referred to Oncology and has been receiving chemotherapy. So far, she has had 6 cycles and the last 1 was on February 14. The patient was feeling well in general until today around 1 p.m. At that time, the patient noted some blood in her ileostomy bag. She called Dr. Avendano in Oncology and he recommended the patient see GI. However, she was unable to get in, so they redirected her to the emergency department for further evaluation. The patient reports that she had emptied her bag and had a 2nd bag with blood in it and less so on the 3rd. She states the blood was very dark and has largely resolved at this point. She was initially seen at [facility] ER, in speaking to the physician there, he indicated that it was more of a maroon and blood mixed with stool that he noted at that time. Of note, the patient has a history of a DVT in March of 2017. She was on 6 months of Xarelto. Once that was completed, she was off it for 2 months, but her oncologist recommended that she go back on it being high risk with the cancer. 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 DVT in March of 2017. PAST SURGICAL HISTORY: Tonsillectomy, bilateral tubal ligation, and diverting ileostomy. SOCIAL HISTORY: The patient is a former smoker. She is a nondrinker and nondrug user. She is . She is full code. Her would be her surrogate decision maker should that become necessary. FAMILY HISTORY: Reviewed. No significant history of premature coronary artery disease, cancer, or anything relative to current admission. REVIEW OF SYSTEMS: The patient has had some problems with reflux, in fact she has had some reflux with brash tonight, which she states has made for her to get to sleep. This has been an intermittent problem for her of late. All other systems were reviewed and all pertinent positives and negatives noted in the history of present illness. ALLERGIES: NONE. CURRENT MEDICATIONS: 1. Xarelto 10 mg daily. 2. Losartan 25 mg daily. PHYSICAL EXAMINATION: VITAL SIGNS: Temperature 97.7, pulse 82, respirations 18, O2 saturation 97% on room air, BP 135/64. GENERAL APPEARANCE: Age-appropriate female. She is awake, alert, oriented, pleasant, very cooperative. HEENT: PERRL. No OP lesions. NECK: Supple and symmetric. HEART: Regular rate and rhythm. No murmurs, gallops, or rubs. LUNGS: Clear to auscultation bilaterally with good chest wall expansion and air exchange. ABDOMEN: Soft, nontender, and nondistended. Positive bowel sounds. No masses. No organomegaly. The right lower quadrant ileostomy bag has brown stool with no evidence of blood. EXTREMITIES: Warm and dry. No cyanosis, clubbing, or edema. NEUROLOGIC: The patient is grossly intact. She has no focal deficits. PSYCHIATRIC: Normal affect and behavior. LABORATORY DATA: White count 7.2, hemoglobin 11.6, platelets 116. INR 1.0, PTT 27.7. Sodium 139, potassium 4.0, chloride 104, CO2 of 25, BUN 14, creatinine 0.74, glucose 132, lactic acid 2.0, AST 37, ALT 29, alkaline phosphatase 183, albumin 3.5. Stool for occult blood was positive. IMPRESSION AND PLAN: 1. Bleeding from ileostomy. The patient is on Xarelto that is going to be held. We will consult GI and General surgery. We will continue to monitor her hemoglobins. Suspect at this point, the best plan will likely be to keep her off the Xarelto and watch. If she has rebleeding, may need more aggressive workup, but will defer ultimate decision to a GI General surgery. 2. Carcinomatosis with poorly differentiated adenocarcinoma of likely colon primary. The patient is currently undergoing chemotherapy. 3. Hypertension. Continue with her usual dose of losartan. 4. Recent history of significantly symptomatic reflux. We will give pantoprazole. Job ID: [id number]
[2018-02-20] MEDS: Sodium Chloride 0.9% 1,000 ML IV SCH ×2 (05:02→05:22)
[2018-02-20 06:41] LABS: #Lymphocytes 1.3 thou/uL (1.20-3.40); #Monocytes 0.3 thou/uL (0.11-0.59); #Neutrophils 3.6 thou/uL (1.40-6.50); %Basophils 0.3 % (0.0-1.0); %Eosinophils 0.9 % (0.0-10.0); %Lymphocytes 24.4 % (21.0-51.0); %Monocytes 5.3 % (0.0-10.0); %Neutrophils 69.2 % (42.0-75.0); Hemoglobin 10.3 g/dL (12.0-16.0); Mean Corpuscular HGB CONC 33.1 g/dL (32.0-36.0); Mean Corpuscular Hemoglobin 27.9 pg (27.0-31.0); Mean Corpuscular Volume 84.3 fL (78.0-98.0); Mean Platelet Volume 8.1 fL (7.4-10.4); Platelet Count 96 thou/uL (130-400); RBC Distribution Width 21.2 % (11.5-14.5); Red Blood Cell (RBC) Count 3.68 mill/uL (4.20-5.40); White Blood Cell (WBC) Count 5.2 thou/uL (4.8-10.8)
[2018-02-20] MEDS ORDERED: Losartan 25 MG TAB PO SCH (09:00)
[2018-02-20] MEDS ORDERED: Prevnar 13-Val Conj/PF 0.5 ML SYRINGE IM ONE (09:00)
[2018-02-20] MEDS ORDERED: Pantoprazole 40 MG VIAL IVP SCH (09:00)
[2018-02-20 09:17] LABS: #Monocytes 0.2 thou/uL (0.11-0.59); #Neutrophils 3.6 thou/uL (1.40-6.50); %Basophils 0.2 % (0.0-1.0); %Eosinophils 0.8 % (0.0-10.0); %Lymphocytes 21.3 % (21.0-51.0); %Monocytes 4.4 % (0.0-10.0); %Neutrophils 73.2 % (42.0-75.0); Hemoglobin 10.7 g/dL (12.0-16.0); Mean Corpuscular HGB CONC 31.8 g/dL (32.0-36.0); Mean Corpuscular Hemoglobin 26.7 pg (27.0-31.0); Mean Corpuscular Volume 84.1 fL (78.0-98.0); Mean Platelet Volume 8.1 fL (7.4-10.4); Platelet Count 108 thou/uL (130-400); RBC Distribution Width 21.3 % (11.5-14.5); Red Blood Cell (RBC) Count 3.99 mill/uL (4.20-5.40); White Blood Cell (WBC) Count 4.9 thou/uL (4.8-10.8)
[2018-02-20 16:28] VITALS: BP 138/64; TEMP 97.8
--- NOTE | 2018-02-20 16:52 | PDOC.EVN ---
Event Note - Event Note Event Note: concur with management by Annabella CHUNG
--- NOTE | 2018-02-20 21:59 | CON ---
DATE OF CONSULTATION: 02/20/2018 GI INPATIENT CONSULTATION NOTE REASON FOR CONSULTATION: GI bleeding. HISTORY OF PRESENT ILLNESS: Layla Davey is a very pleasant 67-year-old woman, patient of my GI colleague, Dr. Azeb Junior. Back in March 2017, she had a lower extremity DVT and was on Xarelto for 6 months. She was found to have iron deficiency anemia and so, Dr. Junior did some endoscopic workup for this. On 11/09/2017, she had a colonoscopy and this unfortunately showed a nearly completely obstructing mass at the hepatic flexure. Biopsies of this showed villous adenoma with atypical features, though not confirmatory of carcinoma. She was referred to Dr. Bloom and underwent exploratory laparoscopy on 11/10/2017. Unfortunately, she was found to have extensive carcinomatosis with the liver essentially replaced by tumor and multiple peritoneal implants and a lot of omental caking. He was unable to resect the primary tumor and so performed a right lower quadrant ileostomy. The patient recovered well from this. Over the past 3-1/2 months since then, she says that she has been doing pretty well with the ileostomy. She really does not have any issues with abdominal pain or ongoing bleeding from the ileostomy site or any other issues with this. She sees Dr. Avendano with Oncology and has been getting chemotherapy. She has been receiving FOLFOX and then recently Avastin was added. She is back on Xarelto as well due to her hypercoagulable state with her cancer. Yesterday afternoon, she changed her ileostomy bag and was a bit surprised to find that it was very dark and maroon in color mixed in with stool. This happened again twice more over the course of yesterday, the second time with larger amount of dark maroon blood, and the third time with quite a bit less. She presented to the emergency department essentially otherwise asymptomatic, not having any abdominal pain or nausea or lightheadedness. Initial hemoglobin was 11.6. She has had no further blood from ileostomy bag since then. The ileostomy output now is normal light brown in color. She has remained hemodynamically stable. Hemoglobin is stable at 10.7. Note, BUN is only 14. Xarelto was held this morning. She has been n.p.o. today, but feeling hungry and otherwise well. REVIEW OF SYSTEMS: Full review of systems including constitutional, head, eyes, ears, nose, throat, GI, , cardiovascular, respiratory, musculoskeletal, and neurologic systems are negative except as noted in the HPI. PAST MEDICAL HISTORY: 1. Hypertension, lower extremity DVT in March 2017, poorly differentiated adenocarcinoma of the colon with extensive peritoneal carcinomatosis, on chemotherapy with FOLFOX and Avastin. 2. Bilateral tubal ligation. 3. Tonsillectomy. 4. Diverting ileostomy, November 10, 2017. SOCIAL HISTORY: She is a former smoker. No alcohol or drug use. FAMILY HISTORY: Negative for malignancy. ALLERGIES: NO KNOWN DRUG ALLERGIES. OUTPATIENT MEDICATIONS: 1. Xarelto. 2. Losartan. PHYSICAL EXAMINATION: VITAL SIGNS: Temperature 97.6, pulse 64, blood pressure 131/60, and 100% oxygen saturation on room air. GENERAL: A 67-year-old woman sitting up in bed comfortably, in no distress. SKIN: No pallor, no jaundice. No rashes were palpable. EYES: No scleral icterus. Extraocular movements intact. ENT: Mucous membranes are moist. No oral lesions. LYMPH: No submandibular or supraclavicular lymphadenopathy. THYROID: Nontender to palpation. HEART: Regular rate and rhythm. LUNGS: Clear to auscultation bilaterally. ABDOMEN: Bowel sounds are present. The abdomen is mildly distended. It is nontender to palpation throughout. Right-sided ileostomy site looks good. There is normal light brown stool in the ileostomy bag. EXTREMITIES: No peripheral edema. VESSELS: Radial pulses 2+ bilaterally. NEURO: Cranial nerves 2 through 12 intact bilaterally. No focal deficits. LABORATORY STUDIES: Hemoglobin 10.7, WBC 4.9, platelets 108. INR 1.0. Sodium 139, potassium 4.0, BUN 14, creatinine 0.74, glucose 132, lactic acid 2.0, total bilirubin 0.3, alkaline phosphatase 183, AST 37, ALT 29, lipase 126, albumin 3.5. ASSESSMENT AND PLAN: 1. Gastrointestinal bleeding, with blood from ileostomy yesterday. 2. Poorly differentiated metastatic adenocarcinoma of the colon, with extensive peritoneal carcinomatosis. As discussed with the patient that her clinical course has been reassuring, her hemoglobin is stable and BUN normal, there has been no further overt bleeding today. She is at a bit higher risk for gastrointestinal bleeding with her Xarelto and also the Avastin. I think her Xarelto should probably be held, but I would defer to the oncologist on this. At any rate, I do not see any clear utility to endoscopic investigation at this point, and less of the bleeding were to become a recurrent issue. Otherwise, the patient is stable and could potentially be discharged home from a GI point of view. She can follow up with Dr. Azeb Junior in the GI clinic on an outpatient basis, particularly if symptoms become recurrent. Thank you for the consultation. Please call anytime with questions or concerns. Job ID: [id number]
--- NOTE | 2018-02-21 07:53 | CON ---
DATE OF CONSULTATION: CHIEF COMPLAINT: Blood per ileostomy. HISTORY OF PRESENT ILLNESS: The patient is a 67-year-old female who underwent an ileostomy and biopsy for an obstructing colon cancer with widely metastatic disease. She has been on chemotherapy and yesterday noticed about 3 ounces of dark red blood in her ostomy. She had a 2nd episode to that day. She came to the hospital and they stopped her Eliquis and she had not had any further bleeding since. PAST MEDICAL HISTORY: Hypertension. She had DVT in March of 2017. MEDICATIONS: She is on, 1. Xarelto. 2. Losartan. PAST SURGICAL HISTORY: Tonsilloadenoidectomy, bilateral tubal ligation, and ileostomy. SOCIAL HISTORY: She is . No tobacco or alcohol. FAMILY HISTORY: Coronary artery disease. PHYSICAL EXAMINATION: VITAL SIGNS: Temperature 97.6, pulse 64, blood pressure 131/60. GENERAL: She is awake, alert, in no apparent distress. ABDOMEN: Soft and nondistended. The ostomy is healthy, working well. There is no blood. There is no tenderness. LABORATORY DATA: Her white count is 4.9, H and H 10 and 33, and platelet count 108, PT of 13, INR of 1. Electrolytes are fine. ASSESSMENT: Episode of bleeding, may be from tumor, may be from something else, but at this time, there is no surgical indication. PLAN: Advance diet. Discharge when stable. Follow up with GI if it recurs. Job ID: [id number]
== END 2018-02-20 18:33 | disposition home or self-care (01) ==
LOC: SCSER 19:49 → INTOOBSV 21:23 → 3SE 21:23
PROVIDERS: ADMIT Internal Medicine; ATTEND Internal Medicine
DX: K94.11 Enterostomy hemorrhage (principal); C18.9 Malignant neoplasm of colon, unspecified; C78.6 Secondary malignant neoplasm of retroperitoneum and peritoneum; I10 Essential (primary) hypertension; Z86.718 Personal history of other venous thrombosis and embolism; Z87.891 Personal history of nicotine dependence; Z79.01 Long term (current) use of anticoagulants; Z79.899 Other long term (current) drug therapy; Z90.49 Acquired absence of other specified parts of digestive tract
CPT/HCPCS: 36415; 80053; 82274; 83605; 83690; 85025; 85610; 85730; 86850; 86900; 86901; 90471; 90662; 90670; 96361; 96374; C9113; G0008; G0009; G0378

== ENCOUNTER 2018-03-07 08:21 | Outpatient (CLI) | payer BC ==
--- NOTE | 2018-03-07 12:21 | CT ---
CT CHEST AND ABDOMEN AND PELVIS WITH IV CONTRAST: 03/07/2018 PROVIDED CLINICAL HISTORY: Metastatic colon cancer. COMPARISON: 11/11/2017 FINDINGS: CHEST: The heart, pericardium, and great vessels demonstrate a stable CT appearance. Right subclavi an implanted port is noted with the tip in the region of the right atrium. Vascular calcification is noted. There is no evidence for thoracic lymph node enlargement. The lungs are free of significant opacity. No pleural fluid or pneumothorax apparent. ABDOMEN/PELVIS: Cystic and solid mass in the region of the pelvic cul-de-sac is unchanged with respe ct to the prior examination. A large, complex, cystic mass at the anterior aspect of the abdomen, in the region of the greater omentum, is redemonstrated, without significant interval change. Multifoc al subcapsular metastatic implants involving the liver and spleen appear not significantly changed co mpared with prior. Additional smaller peritoneal-based soft tissue masses also appear not significan tly changed with respect to prior. Postoperative changes of right lower quadrant ileostomy are seen. There is no evidence for bowel obstruction. There is a subtle low density focus posterior to the inferior vena cava, at the level of the left luis alberto al vein, that may reflect a lymph node, measuring approximately 1 cm in short axis. No additional re troperitoneal lymph node enlargement is apparent. Vascular calcifications are seen. Gallstones are again seen. The osseous structures demonstrate no concerning osteoblastic or osteolytic lesions. IMPRESSION: Changes of peritoneal carcinomatosis are redemonstrated without significant interval change, with res pect to prior. POS: [place]
== END 2018-03-07 08:22 | disposition home or self-care (01) ==
LOC: SCSCT 08:21
PROVIDERS: ATTEND Internal Medicine Hematology & Oncology
DX: C18.9 Malignant neoplasm of colon, unspecified (principal); D50.0 Iron deficiency anemia secondary to blood loss (chronic)
CPT/HCPCS: 71260; 74177

== ENCOUNTER 2018-04-11 08:06 | Outpatient (CLI) | payer BC ==
[2018-04-11] MEDS ORDERED: Sodium Chloride 0.9% 15 ML NEB ONE (09:00)
== END 2018-04-11 08:07 | disposition home or self-care (01) ==
LOC: WCC 08:06
PROVIDERS: ATTEND Family Medicine
DX: K92.2 Gastrointestinal hemorrhage, unspecified (principal); D69.6 Thrombocytopenia, unspecified; Z93.2 Ileostomy status
CPT/HCPCS: A4218

== ENCOUNTER 2018-06-01 15:40 | Outpatient (CLI) | payer BC | END 2018-06-01 15:41 | disposition home or self-care (01) | LOC: WCC 15:40 | PROVIDERS: ATTEND Family Medicine | DX: K92.2 Gastrointestinal hemorrhage, unspecified (principal); D69.6 Thrombocytopenia, unspecified; Z98.890 Other specified postprocedural states | CPT/HCPCS: 99211; G0463 ==

== ENCOUNTER 2018-06-18 07:27 | Outpatient (CLI) | payer BC ==
[2018-06-18] MEDS ORDERED: Iopamidol 370 76% 100 ML VIAL ONE (09:00)
--- NOTE | 2018-06-18 09:12 | CT ---
CT CHEST WITH IV CONTRAST CT ABDOMEN AND PELVIS WITH IV AND ORAL CONTRAST: HISTORY: Colon cancer with metastatic disease. Restaging. COMPARISON: 03/07/2018. FINDINGS: Within the posterolateral aspect of the left upper lobe, and obliquely oriented somewhat linear focus of parenchymal opacity measures up to 1.4 cm length by 1.0 cm width on the axial images. It appears similar to the linear atelectasis from CT chest dated 10/19/2017 at the left lower lobe. It is favored to represent focal area of parenchymal atelectasis rather than a new mass. No pleural fluid or mediastinal adenopathy are apparent. Calcification in the arterial structures. Small hiatal hernia. Gallstones and left renal calculi are again demonstrated. No evidence of obstruc tion. Large lobular fluid collection within the anterior abdomen extending to nodular fluid collections marium und the periphery of the liver is stable compared to the prior exam. A focal area of fluid does now extend into the ostomy at the right lower quadrant, measuring 3.5 cm greatest diameter. Nonobstructed contrast opacified small bowel in the ostomy is also stable and favored to be related to the ileostomy. The right retroperitoneal lymph node, posterior to the right renal vein, is stable at 0.8 cm short axis diameter. Prominent calcification throughout the arterial structures. Degenerative changes lower lumbar spine. Within the pelvis, the large, lobular multi septated fluid collection just superior to the urinary bl adder and uterus is unchanged in size and appearance. Nonspecific lobular low-density lesions within the spleen are stable. IMPRESSION: 1. Overall, the peritoneal carcinomatosis has not changed significantly since the previous exam. 2. A pocket of fluid does now protrude into the right lower quadrant ostomy and may result in a palp able process. No evidence of obstruction. 3. Gallstones, left renal stones, and other incidental-type findings are stable. Transcribed Date/Time: 06/18/2018 9:35 AM
== END 2018-06-18 07:28 | disposition home or self-care (01) ==
LOC: SCSCT 07:27
PROVIDERS: ATTEND Internal Medicine Hematology & Oncology
DX: C18.3 Malignant neoplasm of hepatic flexure (principal); C78.6 Secondary malignant neoplasm of retroperitoneum and peritoneum; K80.20 Calculus of gallbladder without cholecystitis without obstruction; N28.1 Cyst of kidney, acquired
CPT/HCPCS: 71260; 74177; Q9967

== ENCOUNTER 2018-06-22 09:57 | Day surgery (SDC) | payer BC ==
[2018-06-22] MEDS ORDERED: Sodium Chloride 0.9% 20 ML ONE (10:39)
[2018-06-22] MEDS ORDERED: Acetaminophen 500 MG TAB PO SCH (11:00)
[2018-06-22] MEDS ORDERED: diphenhydrAMINE 25 MG CAP PO SCH (11:00)
[2018-06-22 13:36] LABS: #Lymphocytes 1.5 thou/uL (1.20-3.40); #Monocytes 0.2 thou/uL (0.11-0.59); #Neutrophils 8.7 thou/uL (1.40-6.50); %Basophils 0.3 % (0.0-1.0); %Eosinophils 0.3 % (0.0-10.0); %Monocytes 2.3 % (0.0-10.0); %Neutrophils 83.1 % (42.0-75.0); Hemoglobin 6.5 g/dL (12.0-16.0); Mean Corpuscular HGB CONC 31.8 g/dL (32.0-36.0); Mean Corpuscular Hemoglobin 29.8 pg (27.0-31.0); Mean Corpuscular Volume 93.5 fL (78.0-98.0); Mean Platelet Volume 6.9 fL (7.4-10.4); Platelet Count 126 thou/uL (130-400); RBC Distribution Width 17.7 % (11.5-14.5); White Blood Cell (WBC) Count 10.5 thou/uL (4.8-10.8)
[2018-06-22 16:16] VITALS: BP 110/55; TEMP 97.5
== END 2018-06-22 16:21 | disposition home or self-care (01) ==
LOC: ONC/OP 09:57
PROVIDERS: ATTEND Internal Medicine Hematology & Oncology
PROC: 30233N1 Transfusion of Nonautologous Red Blood Cells into Peripheral Vein, Percutaneous Approach (ICD-10-PCS; principal; 2018-06-22)
DX: D64.9 Anemia, unspecified (principal); D69.6 Thrombocytopenia, unspecified
CPT/HCPCS: 36430; 85025; 86850; 86900; 86901; J1642; P9016

== ENCOUNTER 2018-06-26 15:39 | Outpatient (CLI) | payer BC | END 2018-06-26 15:40 | disposition home or self-care (01) | LOC: WCC 15:39 | PROVIDERS: ATTEND Family Medicine | DX: K92.2 Gastrointestinal hemorrhage, unspecified (principal); D69.6 Thrombocytopenia, unspecified | CPT/HCPCS: 99211; G0463 ==

== ENCOUNTER 2018-07-04 11:32 | Day surgery (SDC) | payer BC ==
[2018-07-04] MEDS ORDERED: Acetaminophen 500 MG TAB PO SCH (12:30)
[2018-07-04] MEDS ORDERED: diphenhydrAMINE 25 MG CAP PO SCH (12:30)
[2018-07-04 13:30] VITALS: BMI 25.3
[2018-07-04 18:33] VITALS: BP 101/52; TEMP 98.7
[2018-07-04 19:07] LABS: #Eosinphils 0.2 thou/uL (0.0-0.7); #Lymphocytes 1.4 thou/uL (1.20-3.40); #Neutrophils 11.9 thou/uL (1.40-6.50); %Basophils 0.2 % (0.0-1.0); %Eosinophils 1.3 % (0.0-10.0); %Lymphocytes 9.5 % (21.0-51.0); %Monocytes 7.1 % (0.0-10.0); %Neutrophils 81.9 % (42.0-75.0); Hemoglobin 7.9 g/dL (12.0-16.0); Mean Corpuscular HGB CONC 33.3 g/dL (32.0-36.0); Mean Corpuscular Hemoglobin 29.3 pg (27.0-31.0); Mean Corpuscular Volume 88.2 fL (78.0-98.0); Mean Platelet Volume 7.3 fL (7.4-10.4); Platelet Count 112 thou/uL (130-400); RBC Distribution Width 16.8 % (11.5-14.5); Red Blood Cell (RBC) Count 2.68 mill/uL (4.20-5.40); White Blood Cell (WBC) Count 14.5 thou/uL (4.8-10.8)
== END 2018-07-04 18:34 | disposition home or self-care (01) ==
LOC: ONC/OP 11:32 → 3SE 11:34 → ONC/OP 18:34
PROVIDERS: ATTEND Internal Medicine Hematology & Oncology
PROC: 30233N1 Transfusion of Nonautologous Red Blood Cells into Peripheral Vein, Percutaneous Approach (ICD-10-PCS; principal; 2018-07-04)
DX: D64.9 Anemia, unspecified (principal); D69.6 Thrombocytopenia, unspecified
CPT/HCPCS: 36415; 36430; 85025; 86850; 86900; 86901; J1642; P9016; Q0163

== ENCOUNTER 2018-07-31 09:39 | Day surgery (SDC) | payer BC ==
[2018-07-31] MEDS ORDERED: Acetaminophen 500 MG TAB PO SCH (10:15)
[2018-07-31] MEDS ORDERED: diphenhydrAMINE 25 MG CAP PO SCH (10:15)
[2018-07-31] MEDS ORDERED: Sodium Chloride 0.9% 20 ML ONE (11:16)
[2018-07-31 15:23] LABS: Hemoglobin 6.8 g/dL (12.0-16.0)
[2018-07-31 18:39] VITALS: BP 118/60; TEMP 97.5
== END 2018-07-31 19:21 | disposition home or self-care (01) ==
LOC: ONC/OP 09:39
PROVIDERS: ATTEND Internal Medicine Hematology & Oncology
PROC: 30233N1 Transfusion of Nonautologous Red Blood Cells into Peripheral Vein, Percutaneous Approach (ICD-10-PCS; principal; 2018-07-31)
DX: D64.9 Anemia, unspecified (principal); D69.6 Thrombocytopenia, unspecified
CPT/HCPCS: 36430; 36591; 85014; 85018; 86850; 86900; 86901; J1642; P9016; Q0163

== ENCOUNTER 2018-08-14 22:44 | Inpatient (IN) | payer BC, MEDICARE ==
[2018-08-14] MEDS ORDERED: Pantoprazole 40 MG VIAL ONE (23:10)
[2018-08-14] MEDS ORDERED: Octreotide Acetate 100 MCG/ML VIAL ONE (23:10)
[2018-08-14 23:17] LABS: #Basophils 0.2 thou/uL (0.0-0.2); #Eosinphils 0.1 thou/uL (0.0-0.7); #Lymphocytes 3.9 thou/uL (1.20-3.40); #Monocytes 0.4 thou/uL (0.11-0.59); #Neutrophils 11.1 thou/uL (1.40-6.50); %Eosinophils 0.7 % (0.0-10.0); %Lymphocytes 24.9 % (21.0-51.0); %Monocytes 2.8 % (0.0-10.0); %Neutrophils 70.6 % (42.0-75.0); Hemoglobin 6.2 g/dL (12.0-16.0); Mean Corpuscular HGB CONC 33.7 g/dL (32.0-36.0); Mean Corpuscular Hemoglobin 28.1 pg (27.0-31.0); Mean Corpuscular Volume 83.5 fL (78.0-98.0); Mean Platelet Volume 5.3 fL (7.4-10.4); Platelet Count 123 thou/uL (130-400); RBC Distribution Width 17.5 % (11.5-14.5); Red Blood Cell (RBC) Count 2.22 mill/uL (4.20-5.40); White Blood Cell (WBC) Count 15.7 thou/uL (4.8-10.8)
[2018-08-14] MEDS ORDERED: Ondansetron PF 4 MG/2 ML Vial ONE (23:21)
[2018-08-14 23:32] LABS: ALT (SGPT) 13 U/L (8-55); AST (SGOT) 27 U/L (5-34); Albumin 2.9 g/dL (3.4-4.8); Alkaline Phosphatase 130 U/L (40-150); Anion Gap 16 mmol/L (10-20); BUN (Urea Nitrogen) 14 mg/dL (9.8-20.1); Bilirubin, Total 0.6 mg/dL (0.2-1.2); Calc. Creatinine Clearance 0 mL/min (70-130); Calcium 8.6 mg/dL (7.8-10.44); Carbon Dioxide 19 mmol/L (23-31); Chloride 111 mmol/L (98-107); Estimated GFR-MDRD 59; Globulin 2.2 g/dL (2.4-3.5); Glucose 247 mg/dL (80-115); Potassium 3.6 mmol/L (3.5-5.1); Protein, Total 5.1 g/dL (6.0-8.3); Sodium 142 mmol/L (136-145)
--- NOTE | 2018-08-14 23:39 | RAD ---
EXAM: Single view of the chest HISTORY: Hematochezia and dyspnea COMPARISON: 10/19/2017 FINDINGS: Single view of the chest shows a normal sized cardiomediastinal silhouette. A right subcla vian Mediport is seen with its tip in the superior vena cava. There is no evidence of consolidation, mass, or pleural effusion. The bones are unremarkable. IMPRESSION: No evidence of acute cardiopulmonary disease
[2018-08-14 23:42] LABS: INR-International Normal Ratio 1.3; PTT 27.2 SEC (22.9-36.1); Prothrombin Time 16.1 SEC (12.0-14.7)
[2018-08-15] MEDS ORDERED: Octreotide Acetate 100 MCG/ML VIAL ONE (00:27)
[2018-08-15 02:09] VITALS: BMI 26.7
[2018-08-15] MEDS ORDERED: Ondansetron PF 4 MG/2 ML Vial IVP PRN (03:04)
[2018-08-15] MEDS ORDERED: Ondansetron ODT 4 MG TAB PO PRN (03:04)
[2018-08-15] MEDS ORDERED: Acetaminophen 325 MG TAB PO PRN (03:04)
[2018-08-15] MEDS: Octreotide Acetate 1,250 MCG in Sodium Chloride 0.9% 250 ML 250 ML IVPB SCH (03:37)
[2018-08-15] MEDS: Sodium Chloride 0.9% 1,000 ML IV SCH ×4 (04:27→19:13)
--- NOTE | 2018-08-15 04:31 | HP ---
CHIEF COMPLAINT: Bleeding from her ostomy. HISTORY OF PRESENT ILLNESS: This patient is a 68-year-old female with a history of colon cancer and carcinomatosis, who was admitted in February with some blood coming from her stoma. The patient had had a DVT and had been on some anticoagulation at that time, this was discontinued and her bleeding appeared to stop. She did not undergo endoscopy at that time, but she reports that in March she did undergo endoscopy with Dr. Junior and that was through the stoma and there was apparently no findings. The patient has been receiving chemotherapy with Dr. Amezquita and has been suffering from anemia. She has been getting transfusions every 2-3 weeks. She reported today that she emptied her stoma, then went to make her bed and subsequently had some blood in her back that was feeling pretty quickly, by midday she was passing some black tarry type stool into the bag as well. She was progressively weak throughout the day, lightheaded and at one point, she was not sure, if she did or if she actually lost consciousness, but when she awoke, she was nauseated and vomiting and ultimately decided to present to the emergency department. She presented to the [place] ER where she was noted to be significantly hypotensive with a blood pressure in the 80s. She received fluids, started on an octreotide drip and transferred to this facility for potential blood transfusion. She has emptied her bag multiple times today almost hourly. The nurse reports that she has already emptied her bag and presently it is full of fairly bright red blood. Of note, the patient has not been on any anticoagulation recently. REVIEW OF SYSTEMS: As noted above, the patient had some nausea and vomiting earlier. She has generalized fatigue, but otherwise her review of systems is fully reviewed and all pertinent positives and negatives are noted in the history of present illness. PAST MEDICAL HISTORY: Notable for the primary colon cancer with carcinomatosis of the peritoneum, hypertension, and prior deep venous thrombosis. PAST SURGICAL HISTORY: Tonsillectomy, tubal ligation and the diverting ileostomy. SOCIAL HISTORY: The patient is a former smoker. She is a nondrinker, nondrug user. She is . She is full code. Her would be her surrogate decision maker. FAMILY HISTORY: Reviewed. No significant premature cancers, heart disease or diabetes noted. ALLERGIES: NONE. CURRENT MEDICATIONS: The patient had been on losartan, but is not now. PHYSICAL EXAMINATION: VITAL SIGNS: On arrival here from the ER, heart rate was 91, BP 80/47, respirations 22, O2 saturation 99%. Most recent blood pressure was a systolic of 92. GENERAL APPEARANCE: Age-appropriate female, profoundly pale. She is fully awake, alert, oriented, pleasant, and cooperative. HEENT: ANNETTE, no OP lesions. NECK: Supple and symmetric. HEART: Regular rate and rhythm. No murmurs, gallops, or rubs. LUNGS: Clear to auscultation bilaterally with good chest wall expansion and air exchange. ABDOMEN: Soft, nontender, and nondistended. Positive bowel sounds. No masses. No organomegaly. The right-sided ileostomy bag is full of bright red blood. EXTREMITIES: No cyanosis, clubbing, or edema. Peripheral pulses are weak, but palpable and symmetric. NEUROLOGIC: The patient has normal cognition. She has normal sensation throughout. Spontaneous movement of all extremities. SKIN: She has normal turgor. LABORATORY DATA: White count 15.7, hemoglobin 6.2, platelets 123. INR is 1.3, PT is 16.1, PTT is 27.2. Sodium 142, potassium 3.6, chloride 111, CO2 is 19, BUN 14, creatinine 0.95, glucose 247, AST 27, ALT 13. Troponin less than 0.01. Albumin 2.9, lipase 44. IMAGING: Chest x-ray negative for any acute findings. IMPRESSION AND PLAN: 1. Gastrointestinal bleed, etiology is unclear, looks like it is probably an upper gastrointestinal bleed that is fairly brisk. She has had some black tarry excretion from the bowel, but she is also having some bright red blood. She is going to receive a total of 3 units of blood. She has received Protonix and is on an octreotide drip at the moment. We will continue those and consult Gastroenterology. The patient will remain in the ICU as long as she is hypotensive. 2. Hypovolemic shock secondary to anemia. The patient is so far not requiring any types of pressor. She has the blood going now and anticipate her blood pressure will continue to improve with the blood. 3. Acute blood loss anemia secondary to gastrointestinal bleed. Transfusing 3 units packed red cells. 4. Colon cancer with carcinomatosis. We will have Oncology follow her here as well. 5. Leukocytosis secondary to acute gastrointestinal bleed. 6. Hyperglycemia. We will monitor this. The patient does not have a history of elevated blood sugars in the past. Job ID: [id number]
[2018-08-15 12:18] LABS: #Eosinphils 0.1 thou/uL (0.0-0.7); #Lymphocytes 1.6 thou/uL (1.20-3.40); #Monocytes 0.4 thou/uL (0.11-0.59); #Neutrophils 5.1 thou/uL (1.40-6.50); %Basophils 0.5 % (0.0-1.0); %Eosinophils 1.5 % (0.0-10.0); %Lymphocytes 22.6 % (21.0-51.0); %Monocytes 5.5 % (0.0-10.0); Hemoglobin 9.6 g/dL (12.0-16.0); Mean Corpuscular HGB CONC 34.1 g/dL (32.0-36.0); Mean Corpuscular Hemoglobin 30.8 pg (27.0-31.0); Mean Corpuscular Volume 90.3 fL (78.0-98.0); Mean Platelet Volume 8.1 fL (7.4-10.4); Platelet Count 47 thou/uL (130-400); RBC Distribution Width 14.2 % (11.5-14.5); Red Blood Cell (RBC) Count 3.12 mill/uL (4.20-5.40); White Blood Cell (WBC) Count 7.2 thou/uL (4.8-10.8)
--- NOTE | 2018-08-15 15:11 | PDOC.PN ---
- Subjective Encounter Start Date: 08/15/18 Encounter Start Time: 10:30 Subjective: pt up in bed denies any pain - Objective Resuscitation Status - Order Detail: 08/15/18 03:04 Resuscitation Status Routine Resuscitation Status: FULL: Full Resuscitation Vital Signs & Weight: Vital Signs (12 hours) Temp Pulse Resp BP Pulse Ox 08/15/18 12:00 98.1 F 08/15/18 09:44 97.9 F 74 13 99/44 L 100 08/15/18 07:23 100 08/15/18 06:30 97.9 F 76 20 90/50 L 100 08/15/18 04:15 98.1 F 79 13 95/43 L 100 08/15/18 04:00 98.1 F 08/15/18 03:57 97.7 F 80 12 93/40 L 100 Weight Weight 137 lb 2.04 oz Most Recent Monitor Data Heart Rate from ECG 67 NIBP 99/39 NIBP BP-Mean 59 Respiration from ECG 14 SpO2 100 I&O: 08/14/18 08/15/18 08/16/18 06:59 06:59 06:59 Intake Total 1145.5 50 Output Total 600 100 Balance 545.5 -50 Result Diagrams: 08/15/18 11:56 08/14/18 23:00 Phys Exam - Physical Examination Neck: no nodes, no JVD, supple, full ROM Respiratory: no wheezing, no rales, no rhonchi, wheezing present, clear to auscultation bilateral Cardiovascular: RRR, no significant murmur, no rub, gallop, irregular Gastrointestinal: soft, positive bowel sounds dark blood in colostomy bag Dx/Plan (1) Colon cancer Code(s): C18.9 - MALIGNANT NEOPLASM OF COLON, UNSPECIFIED Status: Acute (2) GI bleed Code(s): K92.2 - GASTROINTESTINAL HEMORRHAGE, UNSPECIFIED Status: Acute (3) Hypovolemia Code(s): E86.1 - HYPOVOLEMIA Status: Acute (4) Anemia Code(s): D64.9 - ANEMIA, UNSPECIFIED Status: Acute - Plan s/p 3 units of prbc, hh now is 9.3. will start pt on protonix -: gi to see pt. pt npo * . Review of Systems - Review of Systems Respiratory: negative: Cough, Dry, Shortness of Breath, Hemoptysis, SOB with Excertion, Pleuritic Pain, Sputum, Wheezing Cardiovascular: negative: chest pain, palpitations, orthopnea, paroxysmal nocturnal dyspnea, edema, light headedness, other Gastrointestinal: negative: Nausea, Vomiting, Abdominal Pain, Diarrhea, Constipation, Melena, Hematochezia, Other - Medications/Allergies Allergies/Adverse Reactions: Allergies Allergy/AdvReac Type Severity Reaction Status Date / Time No Known Allergies Allergy Verified 11/30/17 15:42 Medications: Current Medications Acetaminophen (Tylenol) 650 mg PO Q4H PRN PRN Reason: Headache/Fever/Mild Pain (1-3) Octreotide Acetate 1,250 mcg/ (Sodium Chloride) 251.25 mls @ 10.05 mls/hr IVPB INF FAROOQ Last Admin: 08/15/18 03:37 Dose: 251.25 mls Sodium Chloride (Normal Saline 0.9%) 1,000 mls @ 100 mls/hr IV .Q10H FAROOQ Last Admin: 08/15/18 04:27 Dose: Not Given Ondansetron HCl (Zofran Odt) 4 mg PO Q6H PRN PRN Reason: Nausea/Vomiting Ondansetron HCl (Zofran) 4 mg IVP Q6H PRN PRN Reason: Nausea/Vomiting Pantoprazole Sodium (Protonix) 40 mg IVP Q12HR [facility] Pneumococcal 13-Valent Conj Vacc (Prevnar) 0.5 ml IM .ONCE ONE Stop: 08/15/18 21:01
--- NOTE | 2018-08-15 17:00 | CON ---
DATE OF CONSULTATION: REASON FOR CONSULTATION: Colon cancer. HISTORY OF PRESENT ILLNESS: A 68-year-old female with stage IV colon cancer and carcinomatosis, presenting to the hospital with GI bleed. The patient was initially diagnosed with colon cancer in October 2017 with obstruction and had an ostomy ever since and is currently on chemotherapy with 5-FU and Avastin. She had a history of DVT and was on Xarelto, which has subsequently been held due to recurrent bleeding from her ostomy requiring an occasional blood transfusion. She last received chemotherapy on August 08 and her hemoglobin was 8.1, and she was last transfused on July 31, 2018, when her hemoglobin was 6.8. Yesterday, she began noticing increased bloody stool and black stool from her ostomy that worsened over the day and last night she felt extremely ill, throwing up, very weak, and felt like she could not walk, so she came to the ER. In the ER, her blood pressure was in the 80s and she was started on an octreotide drip and admitted to the ICU, where she has currently received 2 units of PRBCs and is currently being transfused with third unit. Her CBC on admission was 6.2. The patient states that she feels dramatically better after the blood transfusion. Her blood pressure has also improved and her blood pressure is currently 100s/60s. She is not currently tachycardic. REVIEW OF SYSTEMS: Ten-point review of systems negative except as per HPI. PAST MEDICAL HISTORY: Stage IV colon cancer, hypertension, DVT. PAST SURGICAL HISTORY: Diverting ileostomy, tonsillectomy, tubal ligation. SOCIAL HISTORY: Former smoker. Nondrinker. FAMILY HISTORY: Not significant. ALLERGIES: NO KNOWN DRUG ALLERGIES. CURRENT MEDICATIONS: Reviewed. PHYSICAL EXAMINATION: VITAL SIGNS: Heart rate 70, blood pressure 115/65, saturation 100% on room air, respirations 18. GENERAL APPEARANCE: The patient is lying in bed, in no acute distress. HEENT: Normocephalic and atraumatic. NECK: Supple. HEART: Regular rate and rhythm. No murmurs, rubs, or gallops. LUNGS: Clear to auscultation. ABDOMEN: Soft, nondistended, and nontender. Right-sided ileostomy is full of dark red blood. EXTREMITIES: No edema. NEUROLOGIC: Cranial nerves 2 through 12 are grossly intact and otherwise nonfocal. PSYCHIATRIC: Awake, alert, and oriented x3. LABORATORY DATA: White blood cells 15.7, hemoglobin 6.2, platelets 123. Sodium 142, potassium 3.6, chloride 111, carbon dioxide 19, BUN 14, creatinine 0.95, glucose 247, albumin 2.9. IMPRESSION AND PLAN: A 68-year-old female with stage IV colon cancer with carcinomatosis and chronically oozing right-sided ostomy, presenting with brisk bleeding in her ostomy and black stool. The patient is currently on an octreotide drip for concern of an upper GI bleed and Dr. Macias has been consulted. The patient's symptoms have markedly improved after 2 units and is currently being transfused a third unit. Follow up Dr. Macias for evaluation and potentially EGD and colonoscopy to evaluate for the source of this GI bleed. Continue with octreotide and Protonix until she is evaluated by Dr. Macias and would transfuse to keep her hemoglobin above 7.0. The patient did receive recent chemotherapy and if her platelets drop less than 50 due to ongoing bleeding, would transfuse for goal above 50. We will follow along with you. Thank you for the consult. Job ID: [id number]
[2018-08-15] MEDS: Pantoprazole 40 MG VIAL IVP SCH (19:14)
[2018-08-15] MEDS ORDERED: Prevnar 13-Val Conj/PF 0.5 ML SYRINGE IM ONE (21:00)
[2018-08-15] MEDS ORDERED: GoLYTELY 4,000 ml Bottle PO SCH ×2 (21:15→23:00)
--- NOTE | 2018-08-16 03:17 | CON ---
DATE OF CONSULTATION: 08/15/2018 HISTORY OF PRESENT ILLNESS: Ms. Davey is a 68-year-old female. She has a colostomy placed for colon cancer. She apparently has peritoneal implants. She was admitted with bleeding from her stoma. She says this is the third time this has happened. She is currently receiving chemotherapy for her colon cancer. PAST MEDICAL HISTORY: Remarkable for hypertension and DVT in the past, tonsillectomy, tubal ligation, and her ostomy procedure. SOCIAL HISTORY: Former smoker, nondrinker and nondrug user. FAMILY HISTORY: Negative for lung disease in early age. No family history of colon cancer. She has no reported drug allergies. REVIEW OF SYSTEMS: 10 point review of systems completed, otherwise negative. PHYSICAL EXAMINATION: GENERAL: She has a colostomy placed for colon cancer. VITAL SIGNS: Heart rate in the 70s this afternoon, blood pressure is 90/39, respiratory rate is in the teens, oximetry is 100% on room air. HEENT: Pupils are equal. Sclerae anicteric. NECK: Supple without lymphadenopathy. LUNGS: Clear. HEART: Regular rhythm. S1 and S2 are normal. ABDOMEN: Protuberant and firm. EXTREMITIES: Without clubbing. LABORATORY DATA: White count 7.2, hemoglobin 9.6, platelets 47,000. Electrolytes yesterday remarkable for chloride 111, bicarb 19, albumin of 2.9, and glucose 247. IMPRESSION: 1. Ostomy bleeding of unclear etiology. Gastroenterology has been consulted. 2. Metastatic colon cancer. 3. History of deep venous thrombosis, off anticoagulation because her ostomy bleeding. 4. She is at high risk for recurrent deep venous thrombosis given her hypercoagulable state and malignancy. She will have to be watched closely for this and if a bleeding source identified, then at least deep venous thrombosis prophylaxis should be started in my opinion, consideration might be given towards place inferior vena cava filter. 5. We will order Dopplers of her legs in the morning. This is a 50 minute consult, with greater than 50% of time spent on unit coordinating care. Job ID: [id number] MTDD
--- NOTE | 2018-08-16 03:18 | CON ---
DATE OF CONSULTATION: 08/15/2018 REASON FOR CONSULTATION: Hematochezia/blood from ostomy. CONSULTING PROVIDER: Dr. Colby Kincaid. HISTORY OF PRESENT ILLNESS: The patient is a 68-year-old female with past medical history of hypertension, DVT, and stage IV colon cancer with carcinomatosis, currently receiving chemotherapy, presenting with significant amount of blood in her ostomy. The patient is currently receiving chemotherapy with Dr. Avendano with 5-FU and Avastin with her most recent cycle of chemotherapy being received on 08/08. She has had multiple episodes of mild bleeding from her ostomy, usually following prior bouts of chemotherapy in the past and has been evaluated by Dr. Junior as an outpatient with an ileoscopy in 03/2018, that just showed congestion of friable mucosa within the terminal ileum connected to the ostomy. She was in her usual state of health until approximately 1 day ago, when while making the bed, she experienced increased ostomy output in the form of maroon-colored stool/blood. She continued to have high ostomy output with a large volume of blood collecting within her ostomy bag in addition to the "feeling of contraction on the stoma." This was associated with progressively worsening weakness throughout the day, dizziness/lightheadedness, and nausea and vomiting with nonbloody emesis. With the appearance of all of these symptoms, it prompted her to seek healthcare assistance at the [facility], where she was noted to be significantly hypotensive with her systolic blood pressures in the 80s. She was subsequently resuscitated with IV fluids and octreotide drip, and transferred to [facility] for blood infusion and further evaluation. While she has been admitted, she has had continued maroon-colored blood/stool from her ostomy, although it has slowed down somewhat since the institution of current therapies. Currently, she endorses mild dizziness, nausea, and vomiting with mild abdominal tenderness centered primarily around the ileostomy site. However, she denies any fevers, chills, hematemesis, or overt abdominal pain. REVIEW OF SYSTEMS: A 10-category review of systems was obtained with all responses negative except for the pertinent positives as listed in HPI. PAST MEDICAL HISTORY: Hypertension, deep vein thrombosis, and stage IV colon cancer with carcinomatosis. PAST SURGICAL HISTORY: Tonsillectomy, tubal ligation, and diverting ileostomy. SOCIAL HISTORY: Denies any tobacco, alcohol, or illicit drug use. FAMILY HISTORY: Denies any GI malignancies. OUTPATIENT MEDICATIONS: Reviewed. ALLERGIES: NO KNOWN DRUG ALLERGIES. PHYSICAL EXAMINATION: VITAL SIGNS: Temperature 97.6, pulse 65, blood pressure 112/59, respiratory rate 15, and saturating 100% on room air. GENERAL: The patient was lying in bed, in no acute distress. Alert and oriented x4. HEENT: Neck, supple. Normocephalic, atraumatic. No JVD or scleral icterus noted. CARDIOVASCULAR: Regular rate and rhythm with no discernible murmurs, gallops, or rubs. RESPIRATORY: Clear to auscultation bilaterally with no discernible wheezes or rales. ABDOMEN: Normoactive bowel sounds. Soft, nondistended. Tenderness to palpation around the ostomy site itself and within the periumbilical region. EXTREMITIES: No cyanosis, clubbing, or edema. LABORATORY DATA: CBC with a white blood cell count of 15.7, hemoglobin 6.2, hematocrit 18.5, and platelets 123. INR 1.3. Chemistry with a sodium of 142, potassium 3.6, chloride 111, CO2 of 19, BUN 14, creatinine 0.95, and glucose 247. AST 27, ALT 13, alkaline phosphatase 130, and total bilirubin 0.6. IMAGING DATA: No current GI imaging is available for review. ASSESSMENT AND PLAN: The patient is a 68-year-old female with past medical history of hypertension, DVT, and stage IV colon cancer with carcinomatosis, status post chemotherapy with 5-FU and Avastin on 08/05/2018, presenting with increased bloody output from her ostomy. Hematochezia/bloody output from ostomy. The patient is presenting with a prior history of stage IV colon cancer with carcinomatosis, is currently receiving 5-FU and Avastin as part of the treatment for this particular condition. Of note, in the past, she has had episodes of mild oozing of blood from the ostomy itself with prior cycles of chemotherapy. However, over the last 24 to 48 hours, she has had significantly increased bleeding from her ostomy as well as drop in her H and H, tachycardia, and hypotension concerning for significant upper GI or small-bowel bleed. At this time, the differential is broad but could include mucositis related to chemotherapy administration, arteriovenous malformation, Dieulafoy lesion, gastritis, esophagitis, peptic ulcer disease, extension of her malignancy into the GI tract (less likely). RECOMMENDATIONS: 1. We will continue to trend H and H and transfuse as necessary to maintain an H and H of 09/02. 2. Continue to monitor clinically for signs of active GI bleeding. 3. We would continue the patient on PPI b.i.d. for possible upper GI bleed. 4. Given her bleeding within the upper GI tract, use of octreotide is not necessarily indicated due to no prior history of cirrhosis of the liver, although I would continue this medication until evaluated with upper endoscopy. 5. Continue n.p.o. status with plans for EGD and ileoscopy in the morning. We will give the patient 2 L of GoLYTELY in preparation for the ileoscopy. We will continue to follow. Please call with any questions. Job ID: [id number]
[2018-08-16] MEDS: Octreotide Acetate 1,250 MCG in Sodium Chloride 0.9% 250 ML 250 ML IVPB SCH (04:27)
[2018-08-16] MEDS: Pantoprazole 40 MG VIAL IVP SCH ×2 (08:34→21:10)
[2018-08-16 09:17] LABS: #Eosinphils 0.2 thou/uL (0.0-0.7); #Lymphocytes 0.9 thou/uL (1.20-3.40); #Monocytes 0.4 thou/uL (0.11-0.59); #Neutrophils 7.4 thou/uL (1.40-6.50); %Basophils 0.4 % (0.0-1.0); %Eosinophils 1.8 % (0.0-10.0); %Monocytes 4.3 % (0.0-10.0); %Neutrophils 83.6 % (42.0-75.0); Hemoglobin 9.1 g/dL (12.0-16.0); Mean Corpuscular HGB CONC 33.6 g/dL (32.0-36.0); Mean Corpuscular Volume 92.1 fL (78.0-98.0); Mean Platelet Volume 7.2 fL (7.4-10.4); Platelet Count 56 thou/uL (130-400); RBC Distribution Width 15.6 % (11.5-14.5); Red Blood Cell (RBC) Count 2.93 mill/uL (4.20-5.40); White Blood Cell (WBC) Count 8.8 thou/uL (4.8-10.8)
[2018-08-16 09:31] LABS: Anion Gap 10 mmol/L (10-20); BUN (Urea Nitrogen) 18 mg/dL (9.8-20.1); Calc. Creatinine Clearance 63 mL/min (70-130); Calcium 7.7 mg/dL (7.8-10.44); Carbon Dioxide 19 mmol/L (23-31); Chloride 114 mmol/L (98-107); Estimated GFR-MDRD 66; Glucose 78 mg/dL (80-115); Potassium 3.8 mmol/L (3.5-5.1); Sodium 139 mmol/L (136-145)
--- NOTE | 2018-08-16 09:32 | PRG ---
DATE OF SERVICE: 08/16/2018 SUBJECTIVE: This morning, she is awake, alert, responsive, no further bleeding from the ostomy site. OBJECTIVE: VITAL SIGNS: Blood pressure 120/52, pulse 64, sats ultrasound done on both legs. CHEST: No wheezing or crackles. CARDIAC: Normal S1 and S2. No gallops. ABDOMEN: Soft. IMPRESSION: Stage IV colon cancer with carcinomatosis, bleeding from the ostomy site. History of hypercoagulable state. She is due for chemotherapy next week. Platelet count is 47,000. Probably bleeding. She remains stable, no further workup is planned. I would consider transfer her out of the ICU. Job ID: [id number]
--- NOTE | 2018-08-16 09:45 | ULT ---
ULTRASOUND DOPPLER DUPLEX VENOUS BILATERAL LOWER EXTREMITIES: DATE: 08/16/2018 HISTORY: 68-year-old female with bilateral lower extremity edema. Dr. Lizama notified the CCU nurse of the DVT, Jackie Palacios at 9:36 AM on 08/16/2018 TECHNIQUE: Grayscale, color-flow, and spectral analysis, of the bilateral common femoral, profunda femoral, grea ter saphenous, femoral, popliteal, and posterior tibial, veins. FINDINGS: There is thrombus causing incomplete compressibility and noncompressibility in the following veins: Right: Proximal and distal femoral vein, profunda femoral vein, and popliteal vein, nonocclusive. Posterior tibial vein with little flow. Left: Proximal, mid, and distal femoral vein, popliteal vein, and posterior tibial vein, nonocclusive. IMPRESSION: Positive for acute deep venous thrombosis bilaterally.
--- NOTE | 2018-08-16 13:34 | CON ---
DATE OF CONSULTATION: 08/16/2018 HISTORY OF PRESENT ILLNESS: Ms. Davey is a 68-year-old woman with widely metastatic colon cancer with carcinomatosis in her abdomen. She has had a history of DVT in the past, has been on Xarelto. She presented with GI bleeding from her colostomy. Her DVT prophylaxis and treatment have been stopped, and she has had a DVT scan showing bilateral femoral and popliteal DVT. I have been asked to see her to place an inferior vena cava filter. PAST MEDICAL HISTORY: 1. Hypertension. 2. DVT history. PAST SURGICAL HISTORY: 1. Tonsillectomy. 2. Tubal ligation. 3. Colostomy. SOCIAL HISTORY: She is a former smoker. She is . FAMILY HISTORY: Negative for lung disease. ALLERGIES: NONE. MEDICATIONS: Noted. PHYSICAL EXAMINATION: GENERAL: This is a very pleasant woman, resting in the ICU comfortably without pain. VITAL SIGNS: Heart rate is in the low 70s. Blood pressure is 100/72. LUNGS: Clear bilaterally. HEART: Rhythm is regular. ABDOMEN: Soft. EXTREMITIES: No edema. ASSESSMENT AND PLAN: Bilateral deep vein thrombosis with contraindication to anticoagulation. I have discussed inferior vena cava filter placement with her, and she is agreeable. We will place a permanent filter and plan for placement first thing in the morning. Job ID: [id number]
--- NOTE | 2018-08-16 14:48 | PDOC.PN ---
- Subjective Encounter Start Date: 08/16/18 Encounter Start Time: 11:20 Subjective: pt up in bed feels much better - Objective Resuscitation Status - Order Detail: 08/15/18 03:04 Resuscitation Status Routine Resuscitation Status: FULL: Full Resuscitation Vital Signs & Weight: Vital Signs (12 hours) Temp Pulse Ox 08/16/18 12:00 98 F 08/16/18 07:15 100 08/16/18 07:00 98.1 F 08/16/18 04:00 97.7 F Weight Weight 137 lb 2.04 oz Most Recent Monitor Data Heart Rate from ECG 67 NIBP 113/53 NIBP BP-Mean 73 Respiration from ECG 20 SpO2 99 I&O: 08/15/18 08/16/18 08/17/18 06:59 06:59 06:59 Intake Total 1145.5 3436 0 Output Total 600 1525 400 Balance 545.5 1911 -400 Result Diagrams: 08/16/18 08:56 08/16/18 08:56 Phys Exam - Physical Examination Neck: no nodes, no JVD, supple, full ROM Respiratory: no wheezing, no rales, no rhonchi, wheezing present, clear to auscultation bilateral Cardiovascular: RRR, no significant murmur, no rub, gallop, irregular Gastrointestinal: soft, non-tender, no distention, positive bowel sounds Dx/Plan (1) Colon cancer Code(s): C18.9 - MALIGNANT NEOPLASM OF COLON, UNSPECIFIED Status: Acute (2) GI bleed Code(s): K92.2 - GASTROINTESTINAL HEMORRHAGE, UNSPECIFIED Status: Acute (3) Hypovolemia Code(s): E86.1 - HYPOVOLEMIA Status: Acute (4) Anemia Code(s): D64.9 - ANEMIA, UNSPECIFIED Status: Acute - Plan pt up in bed feels better -: pt will need IVC filter -: hh stable, pt will need EGD * . Review of Systems - Review of Systems Respiratory: negative: Cough, Dry, Shortness of Breath, Hemoptysis, SOB with Excertion, Pleuritic Pain, Sputum, Wheezing Cardiovascular: negative: chest pain, palpitations, orthopnea, paroxysmal nocturnal dyspnea, edema, light headedness, other Gastrointestinal: negative: Nausea, Vomiting, Abdominal Pain, Diarrhea, Constipation, Melena, Hematochezia, Other - Medications/Allergies Allergies/Adverse Reactions: Allergies Allergy/AdvReac Type Severity Reaction Status Date / Time No Known Allergies Allergy Verified 11/30/17 15:42 Medications: Current Medications Acetaminophen (Tylenol) 650 mg PO Q4H PRN PRN Reason: Headache/Fever/Mild Pain (1-3) Octreotide Acetate 1,250 mcg/ (Sodium Chloride) 251.25 mls @ 10.05 mls/hr IVPB INF [facility] Last Admin: 08/16/18 04:27 Dose: 251.25 mls Sodium Chloride (Normal Saline 0.9%) 1,000 mls @ 100 mls/hr IV .Q10H [facility] Last Admin: 08/15/18 19:13 Dose: 1,000 mls Ondansetron HCl (Zofran Odt) 4 mg PO Q6H PRN PRN Reason: Nausea/Vomiting Ondansetron HCl (Zofran) 4 mg IVP Q6H PRN PRN Reason: Nausea/Vomiting Pantoprazole Sodium (Protonix) 40 mg IVP Q12HR [facility] Last Admin: 08/16/18 08:34 Dose: 40 mg Polyethylene Glycol/Electrolytes (Golytely) 4,000 ml PO ONE [facility] Stop: 08/16/18 21:16 Last Admin: 08/15/18 21:32 Dose: 2,000 ml
[2018-08-16] MEDS ORDERED: Ondansetron HCl/PF 4 MG/2 ML Vial IVP PRN (18:53)
[2018-08-16] MEDS ORDERED: Promethazine HCl 25 MG/ML VIAL IM PRN (18:53)
--- NOTE | 2018-08-16 20:30 | OP ---
DATE OF PROCEDURE: 08/15/2018 PREPROCEDURE DIAGNOSES: 1. History of metastatic colon cancer, carcinomatosis. 2. Recurrent bleeding into ostomy/ileostomy. This admission, she actually required 3 unit transfusion, at the same time she is undergoing concurrent chemotherapy. 3. Hemoglobin is 9.1, up from 6.2 on admission on 08/14. ANESTHESIA: TIVA. PROCEDURES PERFORMED: EGD, diagnostic; ileoscopy via stoma, diagnostic. POSTPROCEDURE DIAGNOSES: 1. Mild submucosal hemorrhage in the stomach consistent with previous treatment effect versus related to portal gastropathy changes related to her carcinomatosis. 2. Partial gastric outlet obstruction from extrinsic compression, likely from known carcinomatosis. This is in the region of the antrum and duodenal bulb. No intrinsic disease. 3. No bleeding sites identified in the upper GI endoscopy to account for the maroon blood coming from her ostomy. 4. Ileostomy is a double-barrel ileostomy. There are no bleeding sites identified within it. There is an ulceration at the anastomosis from the skin to the ileostomy, a small red spot here, this is likely where she bleeds. RECOMMENDATIONS: 1. Wound/Stoma Care Therapy to see the patient tomorrow, to look if there is anything we can treat this topically with. 2. Wound/Stoma Care has no treatment options, so we would get General Surgery to evaluate it. 3. Did inform the patient and family that she does have a component of gastric outlet obstruction related to her carcinomatosis. DESCRIPTION OF PROCEDURE: The patient was informed of the risks, benefits, and possible complications of endoscopy including perforation, reaction to medication, and aspiration. Informed consent was obtained. The patient was brought to endoscopy suite, where she was sedated in gradual fashion. Once she was comfortable, a biteblock was placed inside the orifice. The endoscope was advanced through esophagus, stomach, and second and third portions of the duodenum, and slowly removed. There was good visualization of the mucosa. The esophagus was normal. There were no signs of varices or bleeding sites. There was no esophagitis. In the stomach, there were few submucosal hemorrhages and kind of an infiltrated edematous appearance of the mucosa. In the antrum, there was extrinsic compression, and infiltrated, firm, feline appearance to the gastric wall. We had to use some force to force the scope through the prepyloric antrum and the pylorus and duodenal bulb. This was all extrinsically compressed. There were no bleeding sites here. The duodenum was normal to the third portion otherwise. The scope was brought back into the stomach. Retroflexed views were performed. There were no ulcers or erosions. There was a submucosal hemorrhage, which was not likely the source of bleeding that she has described. The scope was removed. The patient tolerated the procedure well. The patient was returned to the room. Her ostomy bag was removed after towels were placed around the ostomy appliance. The same endoscope was advanced through the double-barrel ostomy after digital exam was performed. Looking at the anastomosis at skin to the ileum, there was ulceration about 4 mm in size at the 5 o'clock position and there was a little bit of a red spot. There was no pulsatile or active bleeding, but this is the likely source of her bleeding. The ileoscopy was performed on both the afferent and efferent limbs of double-barrel ostomy, and there were no bleeding sites identified. There was no blood identified. The scope was removed. The patient tolerated the procedure well. No complications. Job ID: [id number]
[2018-08-16] MEDS: Sodium Chloride 0.9% 1,000 ML IV SCH (23:38)
[2018-08-17] MEDS: Octreotide Acetate 1,250 MCG in Sodium Chloride 0.9% 250 ML 250 ML IVPB SCH (04:45)
[2018-08-17 06:02] LABS: #Eosinphils 0.2 thou/uL (0.0-0.7); #Lymphocytes 0.8 thou/uL (1.20-3.40); #Monocytes 0.7 thou/uL (0.11-0.59); #Neutrophils 7.8 thou/uL (1.40-6.50); %Basophils 0.3 % (0.0-1.0); %Eosinophils 1.9 % (0.0-10.0); %Lymphocytes 8.4 % (21.0-51.0); %Neutrophils 82.5 % (42.0-75.0); Hemoglobin 8.7 g/dL (12.0-16.0); Mean Corpuscular HGB CONC 33.3 g/dL (32.0-36.0); Mean Corpuscular Hemoglobin 30.7 pg (27.0-31.0); Mean Corpuscular Volume 92.2 fL (78.0-98.0); Mean Platelet Volume 7.5 fL (7.4-10.4); Platelet Count 53 thou/uL (130-400); RBC Distribution Width 16.4 % (11.5-14.5); Red Blood Cell (RBC) Count 2.82 mill/uL (4.20-5.40); White Blood Cell (WBC) Count 9.5 thou/uL (4.8-10.8)
[2018-08-17 06:23] LABS: Anion Gap 9 mmol/L (10-20); BUN (Urea Nitrogen) 18 mg/dL (9.8-20.1); Calc. Creatinine Clearance 61 mL/min (70-130); Calcium 7.9 mg/dL (7.8-10.44); Carbon Dioxide 20 mmol/L (23-31); Chloride 117 mmol/L (98-107); Estimated GFR-MDRD 63; Glucose 160 mg/dL (80-115); Sodium 142 mmol/L (136-145)
[2018-08-17] MEDS ORDERED: Lidocaine 1% (PF) 30 ML VIAL ONE (06:51)
[2018-08-17] MEDS: Sodium Chloride 0.9% 1,000 ML IV SCH ×2 (08:28→10:45)
[2018-08-17] MEDS: Pantoprazole 40 MG VIAL IVP SCH (08:33)
[2018-08-17] MEDS ORDERED: Iopamidol 370 76% 50 ML VIAL FS ONE (09:06)
--- NOTE | 2018-08-17 10:30 | OP ---
DATE OF PROCEDURE: 08/17/2018 PREOPERATIVE DIAGNOSIS: Deep venous thrombosis with gastrointestinal bleed. POSTOPERATIVE DIAGNOSIS: Deep venous thrombosis with gastrointestinal bleed. PROCEDURES PERFORMED: 1. Inferior venacavogram. 2. Inferior vena cava filter placement - TrapEase with its tip at the L1-L2 junction. TOTAL CONTRAST: 4 mL. TOTAL FLUORO TIME: 0.4 minutes. DESCRIPTION OF PROCEDURE: After consent was obtained, the patient was brought to the catheterization lab and placed in supine position on the catheterization lab table. Appropriate monitoring was placed. Groins were prepped and draped in usual sterile fashion. Using ultrasound guidance, the right groin was compressed, and the right common femoral vein was easily compressible. 1% lidocaine was infiltrated into the perivenous space. Percutaneous access to the right common femoral vein was obtained using ultrasound guidance. Guidewire was passed, and a cavogram catheter was passed at L2. Hand-injected cavogram was performed. The lowest left renal vein was on the left with its origin at the midbody of L1. Vena cava itself measured less than 2.5 cm in diameter. The filter was then deployed with its tip at the L1-L2 junction. Filter seated nicely. Sheath was removed, and manual pressure held for hemostasis. The patient tolerated the procedure well and was transferred back to the intensive care unit in stable condition. Job ID: [id number]
[2018-08-17] MEDS ORDERED: Digoxin 0.5 MG/2 ML AMP SLOW IVP SCH (13:30)
--- NOTE | 2018-08-17 14:49 | PDOC.PN ---
- Subjective Encounter Start Date: 08/17/18 Encounter Start Time: 09:45 Subjective: pt up in chair feels well - Objective Resuscitation Status - Order Detail: 08/15/18 03:04 Resuscitation Status Routine Resuscitation Status: FULL: Full Resuscitation Vital Signs & Weight: Vital Signs (12 hours) Temp Pulse Ox 08/17/18 11:00 98.6 F 08/17/18 08:00 98.5 F 08/17/18 07:56 98 Weight Admit Weight 137 lb 2.04 oz Weight 137 lb 2.04 oz Most Recent Monitor Data Heart Rate from ECG 66 NIBP 129/64 NIBP BP-Mean 85 Respiration from ECG 19 SpO2 99 I&O: 08/16/18 08/17/18 08/18/18 06:59 06:59 06:59 Intake Total 3436 3155 180 Output Total 1525 1790 100 Balance 1911 1365 80 Result Diagrams: 08/17/18 05:46 08/17/18 05:46 Additional Labs: Accuchecks 08/17/18 11:42 POC Glucose 112 H Phys Exam - Physical Examination Neck: no nodes, no JVD, supple, full ROM Respiratory: no wheezing, no rales, no rhonchi, wheezing present, clear to auscultation bilateral Cardiovascular: RRR, no significant murmur, no rub, gallop, irregular Gastrointestinal: soft, non-tender, no distention, positive bowel sounds Dx/Plan (1) Colon cancer Code(s): C18.9 - MALIGNANT NEOPLASM OF COLON, UNSPECIFIED Status: Acute (2) GI bleed Code(s): K92.2 - GASTROINTESTINAL HEMORRHAGE, UNSPECIFIED Status: Acute (3) Hypovolemia Code(s): E86.1 - HYPOVOLEMIA Status: Acute (4) Anemia Code(s): D64.9 - ANEMIA, UNSPECIFIED Status: Acute - Plan s/p ivc filter. egd indicated gastric outlet obst -: hh stable, * . Review of Systems - Review of Systems Respiratory: negative: Cough, Dry, Shortness of Breath, Hemoptysis, SOB with Excertion, Pleuritic Pain, Sputum, Wheezing Cardiovascular: negative: chest pain, palpitations, orthopnea, paroxysmal nocturnal dyspnea, edema, light headedness, other Gastrointestinal: negative: Nausea, Vomiting, Abdominal Pain, Diarrhea, Constipation, Melena, Hematochezia, Other - Medications/Allergies Allergies/Adverse Reactions: Allergies Allergy/AdvReac Type Severity Reaction Status Date / Time No Known Allergies Allergy Verified 11/30/17 15:42 Medications: Current Medications Acetaminophen (Tylenol) 650 mg PO Q4H PRN PRN Reason: Headache/Fever/Mild Pain (1-3) Digoxin (Lanoxin) 0.5 mg SLOW IVP Q12H [facility] Stop: 08/18/18 01:31 Octreotide Acetate 1,250 mcg/ (Sodium Chloride) 251.25 mls @ 10.05 mls/hr IVPB INF [facility] Last Admin: 08/17/18 04:45 Dose: 251.25 mls Sodium Chloride (Normal Saline 0.9%) 1,000 mls @ 100 mls/hr IV .Q10H [facility] Last Admin: 08/17/18 10:45 Dose: 1,000 mls Ondansetron HCl (Zofran Odt) 4 mg PO Q6H PRN PRN Reason: Nausea/Vomiting Ondansetron HCl (Zofran) 4 mg IVP Q6H PRN PRN Reason: Nausea/Vomiting Pantoprazole Sodium (Protonix) 40 mg IVP Q12HR [facility] Last Admin: 08/17/18 08:33 Dose: 40 mg
[2018-08-17] MEDS ORDERED: Lidocaine 1% PF 5 ML VIAL ONE (15:28)
[2018-08-17] MEDS ORDERED: PROPOFOL 200 MG/20 ML VIAL ONE (15:28)
--- NOTE | 2018-08-17 16:09 | PRG ---
DATE OF SERVICE: 08/17/2018 REASON FOR CONSULTATION: Hematochezia/blood from ostomy. SUBJECTIVE: The patient underwent both EGD and ileoscopy yesterday by Dr. Ruffin with some mild mucosal erythema seen within the stomach, but no evidence of bleeding within the upper GI tract to account for her hematochezia/blood from her ostomy. He did have some difficulty intubating the duodenum due to compression of the gastric wall at the pylorus, but otherwise was able to go past this extrinsic obstruction and visualize the duodenum beyond, but during the ileoscopy, she did have an ulceration that was seen at essentially the junction between the ileum and the skin/ostomy appliance, that is, at this point, the most likely source of bleeding. Since then, the patient has not had any additional episodes of hematochezia per the ostomy and otherwise is feeling good. Currently, she denies any nausea, vomiting, fevers, chills, or overt GI bleeding. OBJECTIVE: VITAL SIGNS: Temperature 98.4, pulse 78, blood pressure 141/58, respiratory rate 17, saturating 100% on room air. GENERAL: The patient was lying in bed, in no acute distress. Alert and oriented x4. CARDIOVASCULAR: Regular rate and rhythm. RESPIRATORY: Clear to auscultation bilaterally. ABDOMEN: Normoactive bowel sounds. Soft, nondistended. Tenderness to palpation around the ostomy site itself and within the periumbilical region with some evidence of hardness within the region as well. EXTREMITIES: No cyanosis, clubbing, or edema. LABORATORY DATA: CBC with a white blood cell count of 9.5, hemoglobin 8.7, hematocrit 26, and platelets 53. Chemistry with a sodium of 142, potassium 4, chloride 117, CO2 of 20, BUN 18, creatinine 0.89, and glucose 160. IMAGING DATA: EGD findings as described above. ASSESSMENT AND PLAN: The patient is a 68-year-old female with past medical history of hypertension, deep venous thrombosis, and stage IV colon cancer with carcinomatosis, presenting status post chemotherapy with 5-FU and Avastin on August 05, 2018, presenting with hematochezia most likely from ostomy ulceration. Hematochezia/bloody output from ostomy. The patient is presenting with a history of stage IV colon cancer with carcinomatosis, had recently received 5-FU and Avastin as part of her treatment for this condition. She had had some episodes of hematochezia with this in the past, but nothing quite this severe. She ultimately underwent esophagogastroduodenoscopy and ileoscopy on August 16, 2018, with some mucosal hemorrhage within the upper GI tract, but no evidence of bleeding in addition to extrinsic compression of the gastric outflow. However, there was a small ulceration noted at the junction between the ileum and the ostomy, at this point, which will be the most likely source of this bleeding. She does not have any further episodes of bleeding. We asked the Wound Care to see the patient today for further evaluation. RECOMMENDATIONS: 1. We would continue to trend H and H and transfuse as necessary to maintain an H and H of 7/. 2. Continue to monitor clinically for signs of active GI bleeding. 3. We would attempt to avoid anticoagulation in this patient, although with a concurrent diagnosis of DVTs, the IVC filter placement is a good idea. 4. We would consult with the Wound Care for evaluation of this ulceration and possible cauterization to prevent further episodes of bleeding in the future. 5. We would discontinue the octreotide drip given the lack of esophageal varices on the upper endoscopy. 6. We would avoid any NSAIDs. At this time, I would recommend either Wound Care or General Surgery consultation if she has recurrent bleeding. We will sign off at this time. Please call with any questions. Job ID: [id number]
--- NOTE | 2018-08-17 20:02 | PRG ---
DATE OF SERVICE: 08/17/2018 SUBJECTIVE: Ms. Davey has no complaints. OBJECTIVE: VITAL SIGNS: Heart rates in 80s, respiratory rates in the teens, blood pressure 140/53, oximetry is 95 on room air. LUNGS: Clear. HEART: Regular rhythm. ABDOMEN: Soft. Wound Care wish to see the patient to see if they felt this lesion could be dealt with local wound care or would need surgery. I will notify Dr. Bloom of her presence. She had bilateral lower extremity clots on the ultrasound that was ordered for yesterday. Surgery was consulted for placement of a filter. This was done this morning. LABORATORY DATA: White count is 9.5, hemoglobin is 8.7, platelets 53,000. Sodium 142, potassium 4, chloride 117, bicarb 20, BUN 18, creatinine 0.89. IMPRESSION: 1. Gastrointestinal blood loss. 2. Partial gastric outlet obstruction. 3. Ileostomy ulceration at the anastomosis from the skin to the ileostomy, felt to likely be the source of the bleed. Her options are probably going to be limited before the end of the year. She will continue to follow up with the oncologist. She has been transferred out of the Critical Care Unit. If she has no further bleeding episodes, it might be reasonable to place her back on either prophylactic dose p.o. anticoagulants or full-dose anticoagulants. She most likely has hypercoagulable state associated with her malignancy and will likely run the risk of thrombosing more extensively in her lower extremities and perhaps even in her inferior vena cava. This will have to be monitored closely as an outpatient. We will sign off on transfer out of the Critical Care Unit. Job ID: [id number]
[2018-08-18 11:17] LABS: Anion Gap 12 mmol/L (10-20); BUN (Urea Nitrogen) 11 mg/dL (9.8-20.1); Calc. Creatinine Clearance 71 mL/min (70-130); Calcium 7.8 mg/dL (7.8-10.44); Carbon Dioxide 17 mmol/L (23-31); Chloride 116 mmol/L (98-107); Estimated GFR-MDRD 75; Glucose 150 mg/dL (80-115); Potassium 4.5 mmol/L (3.5-5.1); Sodium 140 mmol/L (136-145)
[2018-08-18 11:35] LABS: #Eosinphils 0.1 thou/uL (0.0-0.7); #Lymphocytes 0.8 thou/uL (1.20-3.40); #Monocytes 0.8 thou/uL (0.11-0.59); #Neutrophils 4.8 thou/uL (1.40-6.50); %Basophils 0.4 % (0.0-1.0); %Eosinophils 1.5 % (0.0-10.0); %Lymphocytes 12.4 % (21.0-51.0); %Monocytes 11.6 % (0.0-10.0); %Neutrophils 74.1 % (42.0-75.0); Hemoglobin 8.8 g/dL (12.0-16.0); MDiff Complete? YES; Mean Corpuscular HGB CONC 32.9 g/dL (32.0-36.0); Mean Corpuscular Hemoglobin 30.1 pg (27.0-31.0); Mean Corpuscular Volume 91.5 fL (78.0-98.0); Mean Platelet Volume 9.1 fL (7.4-10.4); Platelet Count 37 thou/uL (130-400); Platelet Morphology Comment Appears Decreased; RBC Distribution Width 16.5 % (11.5-14.5); White Blood Cell (WBC) Count 6.5 thou/uL (4.8-10.8)
--- NOTE | 2018-08-18 15:10 | PDOC.PN ---
- Subjective Encounter Start Date: 08/18/18 Encounter Start Time: 11:30 Subjective: pt up in chair no complains - Objective Resuscitation Status - Order Detail: 08/15/18 03:04 Resuscitation Status Routine Resuscitation Status: FULL: Full Resuscitation Vital Signs & Weight: Vital Signs (12 hours) Temp Pulse Resp BP BP Pulse Ox 08/18/18 08:00 97.9 F 67 16 107/63 94 L 08/18/18 03:54 98.0 F 67 16 103/59 L 94 L Weight Admit Weight 137 lb 2.04 oz Weight 137 lb 2.04 oz Most Recent Monitor Data Heart Rate from ECG 68 NIBP 133/52 NIBP BP-Mean 79 Respiration from ECG 15 SpO2 93 I&O: 08/17/18 08/18/18 08/19/18 06:59 06:59 06:59 Intake Total 3155 1311.3 Output Total 1790 400 Balance 1365 911.3 Result Diagrams: 08/18/18 10:39 08/18/18 10:39 Additional Labs: Accuchecks 08/18/18 08/18/18 08/17/18 11:32 05:29 21:55 POC Glucose 125 H 99 140 H 08/17/18 15:55 POC Glucose 108 Phys Exam - Physical Examination Neck: no nodes, no JVD, supple, full ROM Respiratory: no wheezing, no rales, no rhonchi, wheezing present, clear to auscultation bilateral Cardiovascular: RRR, no significant murmur, no rub, gallop, irregular Gastrointestinal: soft, non-tender, no distention, positive bowel sounds Musculoskeletal: edema present right arm Dx/Plan (1) Colon cancer Code(s): C18.9 - MALIGNANT NEOPLASM OF COLON, UNSPECIFIED Status: Acute (2) GI bleed Code(s): K92.2 - GASTROINTESTINAL HEMORRHAGE, UNSPECIFIED Status: Acute (3) Hypovolemia Code(s): E86.1 - HYPOVOLEMIA Status: Acute (4) Anemia Code(s): D64.9 - ANEMIA, UNSPECIFIED Status: Acute - Plan pt up in chair complains of pain to her ostomy site are -: hh stable possible discharge in am -: s/p ivc filter, will get right upper arm doppler since she complains -: of some swelling. not sure if it is due to iv infiltrate vs dvt * . Review of Systems - Review of Systems Respiratory: negative: Cough, Dry, Shortness of Breath, Hemoptysis, SOB with Excertion, Pleuritic Pain, Sputum, Wheezing Cardiovascular: negative: chest pain, palpitations, orthopnea, paroxysmal nocturnal dyspnea, edema, light headedness, other Gastrointestinal: negative: Nausea, Vomiting, Abdominal Pain, Diarrhea, Constipation, Melena, Hematochezia, Other - Medications/Allergies Allergies/Adverse Reactions: Allergies Allergy/AdvReac Type Severity Reaction Status Date / Time No Known Allergies Allergy Verified 11/30/17 15:42 Medications: Current Medications Acetaminophen (Tylenol) 650 mg PO Q4H PRN PRN Reason: Headache/Fever/Mild Pain (1-3) Ondansetron HCl (Zofran Odt) 4 mg PO Q6H PRN PRN Reason: Nausea/Vomiting Ondansetron HCl (Zofran) 4 mg IVP Q6H PRN PRN Reason: Nausea/Vomiting Pantoprazole Sodium (Protonix) 40 mg PO BID [facility] Last Admin: 08/18/18 07:56 Dose: 40 mg
--- NOTE | 2018-08-18 22:39 | ULT ---
Exam: Right upper extremity venous ultrasound with Doppler HISTORY: Right upper extremity swelling. Comparison none TECHNIQUE: Grayscale, color flow, Doppler imaging and spectral waveform is performed of the right upp er extremity venous system FINDINGS: Compressibility and presence of flow in the jugular vein. There is presence of flow in the subclavian vein and axillary vein. Brachial vein compresses and has flow. Basilic vein has flow. There is echogenic material with absent flow and absent compressibility involving the cephalic vein just above the elbow, compatible with thrombus. IMPRESSION: Thrombus involving the right cephalic vein just above the elbow.
[2018-08-19 04:52] LABS: #Eosinphils 0.1 thou/uL (0.0-0.7); #Lymphocytes 0.8 thou/uL (1.20-3.40); #Monocytes 0.6 thou/uL (0.11-0.59); #Neutrophils 3.1 thou/uL (1.40-6.50); %Basophils 0.6 % (0.0-1.0); %Eosinophils 1.5 % (0.0-10.0); %Lymphocytes 17.1 % (21.0-51.0); %Monocytes 13.6 % (0.0-10.0); %Neutrophils 67.2 % (42.0-75.0); Hemoglobin 8.1 g/dL (12.0-16.0); Mean Corpuscular HGB CONC 33.5 g/dL (32.0-36.0); Mean Corpuscular Hemoglobin 31.2 pg (27.0-31.0); Mean Corpuscular Volume 93.3 fL (78.0-98.0); Mean Platelet Volume 7.2 fL (7.4-10.4); Platelet Count 47 thou/uL (130-400); RBC Distribution Width 16.4 % (11.5-14.5); Red Blood Cell (RBC) Count 2.59 mill/uL (4.20-5.40); White Blood Cell (WBC) Count 4.7 thou/uL (4.8-10.8)
[2018-08-19 04:57] LABS: Anion Gap 9 mmol/L (10-20); BUN (Urea Nitrogen) 8 mg/dL (9.8-20.1); Calc. Creatinine Clearance 79 mL/min (70-130); Calcium 7.7 mg/dL (7.8-10.44); Carbon Dioxide 22 mmol/L (23-31); Chloride 113 mmol/L (98-107); Estimated GFR-MDRD 85; Glucose 123 mg/dL (80-115); Potassium 3.7 mmol/L (3.5-5.1); Sodium 140 mmol/L (136-145)
[2018-08-19 08:41] VITALS: BP 123/63; TEMP 97.8
--- NOTE | 2018-08-19 22:56 | DIS ---
DATE OF ADMISSION: 08/15/2018 DATE OF DISCHARGE: 08/19/2018 DISCHARGE DIAGNOSES: 1. Hypovolemia secondary to anemia. 2. Colon cancer with carcinomatosis. 3. GI bleed. 4. Acute blood loss anemia. 5. History of deep vein thrombosis. 6. Anemia. HOSPITAL COURSE: The patient is a 68-year-old female who initially presented to the hospital on 08/15, please look at the H and P for further details, with complaints of bleeding from the ostomy site. The patient at this time was found to be hypotensive. She was admitted into the [facility], was put on octreotide and PPI drip and also received 3 units of blood. She also was given IV hydration and GI was consulted. The patient had an EGD diagnostic and ileoscopy via stoma. It indicated no significant areas of bleeding from the upper GI. Her ileostomy indicated no significant bleeding site within, however there was an ulceration to the anastomosis from the skin to the ileostomy and a small red spot was noted there, which thought most likely that could be the possibility of her bleeding. She also had partial gastric outlet obstruction from external compression, likely from her carcinomatosis. The patient's H and H were stable upon discharge; however, she also had lower extremity Dopplers which indicated DVTs, so she had an IVC filter placed. She did complain of right arm swelling where her IV site was. At this time, I did do a right upper extremity ultrasound which indicated she had a thrombus involving the right cephalic vein just below the elbow. I did discuss this with the patient and the patient's family, given her recent bleed, I would not be able to anticoagulate her. The patient understands and also told her that if she starts to get short of breath or has any additional symptoms to come into the hospital, which she agreed. The patient will follow up with Oncology and also with her primary care doctor. She also has a followup with Dr. Bloom who is her surgeon. I did look at her stoma site. She does have an ulceration on the outskirts of her stoma; however, there was no area of active bleeding. I did advise her to follow up with her surgeon, so he can evaluate it further. HOME MEDICATIONS: She is going to be on pantoprazole 40 mg daily. PHYSICAL EXAMINATION: VITAL SIGNS: 97.8, 84, 20, 96% on room air, 126/63. GENERAL: She is awake, alert, and oriented x3. Does not appear in distress. CV: S1 and S2 present. No murmurs, rubs, or gallops. ABDOMEN: Soft and nontender. Bowel sounds are present x2. DISCHARGE INSTRUCTIONS: Of note, I did speak also with the on-call oncologist to just run the case by in terms of possible anticoagulation. However, again given patient's risk of recent bleed and also her cephalic thrombus which is superficial; however, given her hypercoagulable state, it was the best option to keep her off the anticoagulation and this was discussed with the patient and the patient's . Job ID: [id number]
== END 2018-08-19 13:49 | disposition home or self-care (01) | DRG 356 ==
LOC: SCSER 22:44 → CCU 08-15 01:00 → T4-A 08-17 17:58
PROVIDERS: ADMIT Internal Medicine; ATTEND Internal Medicine
PROC: 30233N1 Transfusion of Nonautologous Red Blood Cells into Peripheral Vein, Percutaneous Approach (ICD-10-PCS; 2018-08-14)
PROC: 0DJ08ZZ Inspection of Upper Intestinal Tract, Via Natural or Artificial Opening Endoscopic (ICD-10-PCS; 2018-08-15)
PROC: 0DJD8ZZ Inspection of Lower Intestinal Tract, Via Natural or Artificial Opening Endoscopic (ICD-10-PCS; 2018-08-15)
PROC: 06H03DZ Insertion of Intraluminal Device into Inferior Vena Cava, Percutaneous Approach (ICD-10-PCS; principal; 2018-08-17)
PROC: B5191ZZ Fluoroscopy of Inferior Vena Cava using Low Osmolar Contrast (ICD-10-PCS; 2018-08-17)
DX: K94.01 Colostomy hemorrhage (principal); R57.1 Hypovolemic shock; C18.9 Malignant neoplasm of colon, unspecified; D62 Acute posthemorrhagic anemia; C80.0 Disseminated malignant neoplasm, unspecified; K31.1 Adult hypertrophic pyloric stenosis; R73.9 Hyperglycemia, unspecified; Y83.9 Surgical procedure, unspecified as the cause of abnormal reaction of the patient, or of later complication, without mention of misadventure at the time of the procedure; F41.9 Anxiety disorder, unspecified; Z86.718 Personal history of other venous thrombosis and embolism; Z79.01 Long term (current) use of anticoagulants; Z98.51 Tubal ligation status; Z87.891 Personal history of nicotine dependence; Z90.49 Acquired absence of other specified parts of digestive tract
CPT/HCPCS: 36415; 36416; 36430; 37191; 71045; 76942; 80048; 80053; 83690; 84484; 85025; 85610; 85730; 86850; 86900; 86901; 93005; 93970; 96361; 96365; 96366; 96374; 96375; C1769; C9113; J1644; J2001; J2354; J2405; J2704; J7050; P9016; Q9967

== ENCOUNTER 2018-10-10 12:23 | Day surgery (SDC) | payer BC ==
[2018-10-10] MEDS ORDERED: Acetaminophen 500 MG TAB PO SCH (12:45)
[2018-10-10] MEDS ORDERED: diphenhydrAMINE 25 MG CAP PO SCH (12:45)
[2018-10-10 16:25] VITALS: BP 134/63; TEMP 97.6
== END 2018-10-10 16:26 | disposition home or self-care (01) ==
LOC: ONC/OP 12:23
PROVIDERS: ATTEND Internal Medicine Hematology & Oncology
PROC: 30233N1 Transfusion of Nonautologous Red Blood Cells into Peripheral Vein, Percutaneous Approach (ICD-10-PCS; principal; 2018-10-10)
DX: D64.9 Anemia, unspecified (principal); D69.6 Thrombocytopenia, unspecified
CPT/HCPCS: 36415; 36430; 80053; 82248; 82378; 83615; 84100; 84550; 86850; 86900; 86901; P9016; Q0163

== ENCOUNTER 2018-12-18 07:42 | Outpatient (CLI) | payer BC ==
[2018-12-18] MEDS ORDERED: Iopamidol 300 61% 100 ML VIAL FS ONE (09:00)
--- NOTE | 2018-12-18 09:36 | CT ---
CT CHEST WITH CONTRAST: CT ABDOMEN WITH CONTRAST: CT PELVIS WITH CONTRAST: HISTORY: Iron deficiency anemia. Malignant neoplasm of hepatic flexure. COMPARISON: Chest, abdomen and pelvis CT from 09/20/2018. FINDINGS: Similar appearance to parenchymal pleural scar, left upper lobe, posterior segment, abutting the sue r fissure. No new suspicious pulmonary nodules. No pneumothorax. Although it appears intraparenchymal , there is some peritoneal carcinomatosis underneath the right hemidiaphragm with focal eventration, giving the appearance of a lung nodule, although this is not felt to be true. No mediastinal adenopathy. No pericardial effusion. Enhancing component of the peritoneal carcinomatosis has increased. There is herniation of fluid aries g the right ostomy. The amount of ascites is slightly improved. There is cholelithiasis. Perihepatic and perisplenic scalloping is similar. There is an IVC filter in place. Nonobstructive left-sided renal calculi. No evidence for bowel obstruction. IMPRESSION: Mild interval increase in the solid enhancing component to the peritoneal carcinomatosis, otherwise u nchanged examination. POS: [facility]
== END 2018-12-18 07:43 | disposition home or self-care (01) ==
LOC: SCSCT 07:42
PROVIDERS: ATTEND Internal Medicine Hematology & Oncology
DX: C18.3 Malignant neoplasm of hepatic flexure (principal); D50.0 Iron deficiency anemia secondary to blood loss (chronic); C22.9 Malignant neoplasm of liver, not specified as primary or secondary; C78.6 Secondary malignant neoplasm of retroperitoneum and peritoneum
CPT/HCPCS: 71260; 74177; Q9967

== ENCOUNTER 2019-03-11 08:00 | Outpatient (CLI) | payer MEDICARE, BC ==
--- NOTE | 2019-03-11 10:49 | CT ---
EXAM: CT of the chest with contrast CT of the abdomen and pelvis with contrast HISTORY: Colon cancer of the hepatic flexure of the colon. COMPARISON: 12/18/2018 TECHNIQUE: 1. Multiple contiguous axial images were obtained in a CT the chest with contrast. Coronal and sagitt al reformats were performed. 2. Multiple contiguous axial images were obtained and a CT of the abdomen and pelvis with contrast. C oronal and sagittal reformats were performed. FINDINGS: CT CHEST: HEART: Normal in size without focal cardiac abnormality MEDIASTINUM: No hilar or mediastinal lymphadenopathy. There is a Mediport with its tip in the right a trium. LUNGS: No focal infiltrates, nodules, or masses. PLEURAL SPACE: No pneumothorax or pleural effusion. CHEST WALL SOFT TISSUES: Unremarkable CT ABDOMEN/PELVIS: ABDOMEN: LIVER: within normal limits. BILE DUCTS: Normal caliber. GALLBLADDER: Calcified gallstones without gallbladder wall thickening. PANCREAS: within normal limits. SPLEEN: within normal limits. ADRENALS: within normal limits. KIDNEYS: 4 to 5 mm nonobstructing calcification in the left kidney. PELVIS: REPRODUCTIVE ORGANS: No pelvic masses. URETERS: within normal limits. BLADDER: within normal limits. PERITONEUM: Diffuse scattered masses are seen throughout the abdomen and pelvis. These also seen surr ounding the liver and spleen as well as extending into the patient's ostomy. These are stable compared to the prior examination. BOWEL: Normal caliber. An ostomy is seen in the right lower quadrant of the abdomen. MESENTERY AND RETROPERITONEUM: No enlarged mesenteric or retroperitoneal lymph nodes. VESSELS: Atherosclerotic calcifications. IVC filter. There is a filling defect in the right common fe moral vein which appears slightly tubular and may represent a small thrombus. ABDOMINAL WALL: within normal limits. OSSEOUS STRUCTURES: Degenerative changes in the spine. No suspicious osseous lesions. IMPRESSION: 1. Stable diffuse peritoneal disease 2. Cholelithiasis 3. Nonobstructing left renal calcification 4. Small area of possible DVT in the right common femoral vein.
== END 2019-03-11 08:01 | disposition home or self-care (01) ==
LOC: SCSCT 08:00
PROVIDERS: ATTEND Internal Medicine Hematology & Oncology
DX: C18.3 Malignant neoplasm of hepatic flexure (principal); D50.0 Iron deficiency anemia secondary to blood loss (chronic); K66.9 Disorder of peritoneum, unspecified; N20.0 Calculus of kidney
CPT/HCPCS: 71260; 74177

== ENCOUNTER 2019-04-01 08:42 | Outpatient (CLI) | payer BC, MEDICARE ==
--- NOTE | 2019-04-02 14:39 | MMO ---
Bilateral MAMMO Bilat Screen [facility]. CLINICAL HISTORY: Patient is 68 years old and is seen for screening. The patient has no family history of breast cancer. The patient has a history of colon cancer in October,. VIEWS: The views performed were: bilateral craniocaudal with tomosynthesis and bilateral mediolateral oblique with tomosynthesis. This study has been interpreted with the assistance of computer-aided detection. MAMMOGRAM FINDINGS: There are scattered fibroglandular densities. There are benign appearing calcifications seen in both breasts. There are no suspicious masses, suspicious calcifications, or new areas of architectural distortion. IMPRESSION: THERE IS NO MAMMOGRAPHIC EVIDENCE OF MALIGNANCY. A ROUTINE FOLLOW-UP MAMMOGRAM IN 1 YEAR IS RECOMMENDED. THE RESULTS OF THIS EXAM WERE SENT TO THE PATIENT. ACR BI-RADS Category 2 - Benign finding MAMMOGRAPHY NOTE: 1. A negative mammogram report should not delay a biopsy if a dominant of clinically suspicious mass is present. 2. Approximately 10% to 15% of breast cancers are not detected by mammography. 3. Adenosis and dense breasts may obscure an underlying neoplasm. Reported by: ELOY PICHARDO MD Electonically Signed: [id number]
== END 2019-04-01 08:43 | disposition home or self-care (01) ==
LOC: BICMAMMO 08:42
PROVIDERS: ATTEND Family Medicine
DX: Z12.31 Encounter for screening mammogram for malignant neoplasm of breast (principal); Z85.038 Personal history of other malignant neoplasm of large intestine
CPT/HCPCS: 77063; 77067

== ENCOUNTER 2019-05-20 08:00 | Outpatient (CLI) | payer MEDICARE, BC ==
--- NOTE | 2019-05-20 09:42 | CT ---
CT chest with IV contrast CT abdomen and pelvis with IV and oral contrast HISTORY: C18.3. Colon cancer with metastatic disease. Restaging. COMPARISON: 03/11/2019. FINDINGS: Extremely bulky, heterogeneous low density peritoneal metastatic implant is again demonstra kenny. It is overall unchanged in appearance and size from the previous study. Component extending over the dome of the liver is again demonstrated, resulting in a small hemispherical protrusion into the base of the right hemithorax best demonstrated on the coronal images. At the level of the aortic bifurcation, the largest confluent implant within the far anterior margin of the abdominal cav ity remains approximately 19 cm transverse diameter. Bulky confluent components extending into the lower abdomen, pelvis, and cul-de-sac are also unchanged. There is resultant marked compression upon the posterior aspect of the uterus. Right lower quadrant ostomy again demonstrated. Small low-density lesions within the spleen and calcified granulomata are stable. Gallbladder is decompressed around hyperdense stones. Inferior vena cava filter is in place. There is dense calcification throughout the arterial structures. Small nonobstructing calcifications associated with left renal calyces are unchanged in appearance. Elongated filling defect within the right lower extremity venous structures now extends from the uppe r femoral vein to the most central portion of the external iliac vein. IMPRESSION : Overall stable appearance of the extensive, confluent peritoneal metastatic disease. Slight interval propagation of the right iliac/femoral vein thrombus. IVC filter remains in place. Cholelithiasis. Chronic-type findings are stable.
== END 2019-05-20 08:01 | disposition home or self-care (01) ==
LOC: SCSCT 08:00
PROVIDERS: ATTEND Internal Medicine Hematology & Oncology
DX: C18.3 Malignant neoplasm of hepatic flexure (principal); D50.0 Iron deficiency anemia secondary to blood loss (chronic); K80.20 Calculus of gallbladder without cholecystitis without obstruction
CPT/HCPCS: 71260; 74177

== ENCOUNTER 2019-06-24 10:32 | Inpatient (IN) | payer MEDICARE, BC ==
[2019-06-24 11:11] LABS: Hemoglobin 10.1 g/dL (12.0-16.0); Mean Corpuscular HGB CONC 30.4 g/dL (32.0-36.0); Mean Corpuscular Hemoglobin 26.1 pg (27.0-31.0); Mean Corpuscular Volume 85.7 fL (78.0-98.0); Mean Platelet Volume 8.4 fL (7.4-10.4); Platelet Count 126 thou/uL (130-400); RBC Distribution Width 19.7 % (11.5-14.5); Red Blood Cell (RBC) Count 3.86 mill/uL (4.20-5.40); White Blood Cell (WBC) Count 39.1 thou/uL (4.8-10.8)
[2019-06-24 11:30] LABS: ALT (SGPT) 10 U/L (8-55); AST (SGOT) 21 U/L (5-34); Albumin 3.8 g/dL (3.4-4.8); Alkaline Phosphatase 285 U/L (40-110); Anion Gap 16 mmol/L (10-20); BUN (Urea Nitrogen) 8 mg/dL (9.8-20.1); Bilirubin, Total 0.3 mg/dL (0.2-1.2); Calc. Creatinine Clearance 0 mL/min (70-130); Calcium 9.3 mg/dL (7.8-10.44); Carbon Dioxide 22 mmol/L (23-31); Chloride 105 mmol/L (98-107); Estimated GFR-MDRD 71; Globulin 2.6 g/dL (2.4-3.5); Glucose 114 mg/dL (80-115); Potassium 3.3 mmol/L (3.5-5.1); Protein, Total 6.4 g/dL (6.0-8.3); Sodium 140 mmol/L (136-145)
[2019-06-24 11:37] LABS: Band 26 % (5-11); Dohle Bodies SLIGHT; Eosinophils 1 % (0-10); Lymphocytes 11 % (21-51); MDiff Complete? YES; Monocytes 8 % (0-10); Neutrophil 54 % (42-75); Platelet Morphology Comment Appears Decreased; Polychromasia MODERATE = 3-4 cells (100X) (0-2/hpf); Reflex for Review?? YES; Schistocytes SLIGHT = 2-5 cells (100X) (0-1/hpf); Vacuoles MODERATE
[2019-06-24] MEDS ORDERED: metroNIDAZOLE 500 MG/100 ML BAG ONE (11:56)
[2019-06-24] MEDS ORDERED: Cefepime 2 GM VIAL ONE (11:56)
[2019-06-24] MEDS ORDERED: Lorazepam 2 MG/ML VIAL ONE (11:56)
[2019-06-24] MEDS ORDERED: Metoclopramide HCl 10 MG/2 ML VIAL ONE (12:54)
[2019-06-24] MEDS ORDERED: Tranexamic Acid 1,000 MG/10 ML VIAL ONE (12:55)
[2019-06-24 13:02] LABS: PTT 32.8 SEC (22.9-36.1)
[2019-06-24 13:03] LABS: Prothrombin Time 13.6 sec (12.0-14.7)
--- NOTE | 2019-06-24 14:29 | CON ---
DATE OF CONSULTATION: 06/24/2019 CHIEF COMPLAINT: Bleeding from ostomy. HISTORY OF PRESENT ILLNESS: This is a 69-year-old female with widely metastatic colon cancer and carcinomatosis, who had a diverting colostomy performed for that. She has had several episodes of bleeding over the last year. At that time, was due to being on anticoagulation. Later, she was bleeding because she was on Avastin. Two weeks ago, she bled again and that was at the [facility], where she had some suture ligation performed. She said she did also have some constipation and started bleeding again this morning. They came in, she said she bled about half a colostomy bag. Pressure has been applied to this ostomy, it has stopped. PAST MEDICAL HISTORY: Significant for; 1. Colon cancer with carcinomatosis of peritoneum. 2. Hypertension. 3. Previous deep venous thrombosis. PAST SURGICAL HISTORY: 1. Bilateral tubal ligation. 2. Diverting ileostomy. 3. Tonsillectomy. SOCIAL HISTORY: She is a former smoker. No tobacco or alcohol. She is currently undergoing chemotherapy. ALLERGIES: NO KNOWN DRUG ALLERGIES. MEDICATIONS: Include losartan. PHYSICAL EXAMINATION: GENERAL: She is awake, alert. She is pale. VITAL SIGNS: Heart rate 127, blood pressure 120/80. LUNGS: Clear. HEART: Regular rate and rhythm. ABDOMEN: Soft, obese, kind of a friable mucosa of the ileostomy currently not bleeding in the recent past. No focal areas to control. LABORATORY DATA: Her white count is 39 due to recent chemo, hemoglobin 10, hematocrit 33, platelet count 126. They did not do any kind of coags or bleeding studies. Electrolytes are fine. ASSESSMENT: Mucosal ileostomy bleeding, controlled at this point due to large number of factors, possibly due to coagulopathy. PLAN: Continue to hold pressure on this. Serial H and H, transfuse as necessary. Should go to the Oncology Service with medical consultation. I will also be consulting. Job ID: [id number]
--- NOTE | 2019-06-24 14:33 | HP ---
PRIMARY CARE PHYSICIAN: Dr. Diggs. ONCOLOGIST: Berhane Avendano MD The patient sees Dr. Bloom for her surgical issues. CHIEF COMPLAINT: Bleeding around the stoma. HISTORY OF PRESENT ILLNESS: Ms. Davey is a very pleasant 69-year-old female, who has a history of metastatic colon cancer as well as hypertension and has a history of deep vein thrombosis in the past, status post IVC filter placement. She was in her usual state of health until Monday. She noted some pain she says above the stoma on Monday night. She says that she believes she may have been a bit constipated because she had a formed stool through the stoma, which is unusual for her. She says she had read something online that says you can use a warm compress to the area which she did, but later on that evening she had another formed stool through the stoma. Then, she noted some bleeding start on Monday. She thought it could be related to the pressure around the stoma from the constipation, however, it seemed to get worse. She says that it would get worse if she stood up and she started to feel a bit weak and as a result, she came to the ER for evaluation. In the ER, it was noted that she had some significant bleeding around the area. They tried to put pressure on it for a while, but then it continued to bleed and also started using pressure dressing with some sandbags to the area and she is being placed in observation for further evaluation. Otherwise, the patient has no other complaints other than feeling a little bit weak and she says that she felt some lightheadedness. She denies any fevers or chills. No nausea. No vomiting. She tells me that she had a Neulasta Onpro placed on and she says it went off and then it is supposed to be taken off tomorrow. This is notable due to her elevated white blood cell count. REVIEW OF SYSTEMS: Otherwise, with regard to the review of systems, all systems were reviewed and are negative except for that mentioned in History of Present Illness. PAST MEDICAL HISTORY: Significant for colon cancer, which is a metastatic adenocarcinoma with mucinous features. The patient has a history of high blood pressure, but she says ever since she started chemotherapy, her blood pressure has actually been low. History of DVT, status post IVC filter placement. PAST SURGICAL HISTORY: She has had bilateral tubal ligation, a diverting ileostomy placed in October 2017, tonsillectomy, and IVC filter placed in August of 2018. SOCIAL HISTORY: She is a nonsmoker and nondrinker. She lives with family. She is , has 2 children and she says she would like to be a full code and her is her surrogate decision maker. CURRENT MEDICATIONS: Include; 1. Protonix 40 mg daily. 2. Integra, which is a supplemental iron daily. 3. Zofran. 4. Multivitamin. FAMILY HISTORY: Significant for coronary artery disease in both parents and grandparents as well as Alzheimer's disease, kidney disease, and heart disease. ALLERGIES: NO KNOWN DRUG ALLERGIES. PHYSICAL EXAMINATION: GENERAL: She is alert and oriented. She appears to be in no acute distress. She is well developed and well nourished. She is noted to have some mild alopecia consistent with chemotherapy. VITAL SIGNS: Blood pressure was 128/80, heart rate 132, respiratory rate of 20, temperature is 98.3, and O2 saturation is 99% on room air. HEENT: Pupils are equal, round, and reactive. Sclerae are anicteric, but they are pale. Throat; there is no erythema, no exudates. NECK: No adenopathy. No bruits. LUNGS: Clear to auscultation. There are no wheezing, no rales, no rhonchi. CARDIOVASCULAR: She has a normal S1 and S2. Heart rate is tachycardic. There are no murmurs or clicks. No rubs. ABDOMEN: Soft, nontender, and nondistended. The stoma site is noted. She does have some oozing of some dark red blood from around the lateral lower aspect of the stoma. It is not pulsatile and I do not see any visible vessels. EXTREMITIES: There is no clubbing or cyanosis. No edema. No calf tenderness. No joint effusions. NEUROLOGIC: Cranial nerves are intact. Her muscle strength is 5/5 in both her upper and lower extremities. LABORATORY RESULTS: White blood cell count 39.1, hemoglobin 10.1, hematocrit is 33.1, and platelet count is 126. INR is 1.0. Sodium 140, potassium 3.3, chloride is 105, CO2 is 22, BUN of 8, creatinine 0.81, and glucose is 114. ASSESSMENT AND PLAN: 1. This is a pleasant 69-year-old female, who presented to the emergency room with bleeding around the stoma. She had, had a similar episode about 2 weeks ago, where she was treated at the [facility] and had an artery sutured. At this time, the bleeding does not appear to be arterial. She will be placed in observation and General Surgery will be consulted. We will continue the pressure dressing as tolerated. Monitor her H and H and she has already been given tranexamic acid to help with the bleeding. 2. Leukocytosis. I suspect this is related to the Neulasta Onpro. We will monitor her CBC while she is in the hospital, but she does not appear to have any signs of sepsis. There is no fever and she does not give any symptoms attributable to infection. 3. Deep vein thrombosis. This will be accomplished with SCDs. We will avoid any anticoagulation due to her current bleeding situation. She also has an inferior vena cava filter in place. Otherwise, further recommendations to follow. Job ID: [id number]
[2019-06-24] MEDS ORDERED: Acetaminophen 325 MG TAB PO PRN (16:12)
[2019-06-24] MEDS ORDERED: Ondansetron ODT 4 MG TAB PO PRN (16:12)
[2019-06-24] MEDS ORDERED: hydrALAZINE 20 MG/ML VIAL SLOW IVP PRN (16:12)
[2019-06-24] MEDS ORDERED: Ondansetron PF 4 MG/2 ML Vial IVP PRN (16:12)
[2019-06-24 16:56] VITALS: BMI 24.8
[2019-06-25 06:43] LABS: Anion Gap 15 mmol/L (10-20); BUN (Urea Nitrogen) 9 mg/dL (9.8-20.1); Calc. Creatinine Clearance 64 mL/min (70-130); Calcium 8.9 mg/dL (7.8-10.44); Carbon Dioxide 22 mmol/L (23-31); Chloride 109 mmol/L (98-107); Estimated GFR-MDRD 72; Glucose 88 mg/dL (80-115); Potassium 4.5 mmol/L (3.5-5.1); Sodium 141 mmol/L (136-145)
[2019-06-25 06:59] LABS: Hemoglobin 7.9 g/dL (12.0-16.0); Mean Corpuscular HGB CONC 30.7 g/dL (32.0-36.0); Mean Corpuscular Hemoglobin 26.2 pg (27.0-31.0); Mean Corpuscular Volume 85.5 fL (78.0-98.0); Mean Platelet Volume 8.1 fL (7.4-10.4); Platelet Count 135 thou/uL (130-400); RBC Distribution Width 19.6 % (11.5-14.5); Red Blood Cell (RBC) Count 3.02 mill/uL (4.20-5.40)
[2019-06-25 08:14] LABS: Band 22 % (5-11); Eosinophils 1 % (0-10); Lymphocytes 14 % (21-51); MDiff Complete? YES; Monocytes 9 % (0-10); Myelocyte 1 % (0-0); Neutrophil 53 % (42-75); Platelet Morphology Comment Appears Adequate; Polychromasia MODERATE = 3-4 cells (100X) (0-2/hpf)
[2019-06-25 12:13] VITALS: BP 158/88; TEMP 97.9
--- NOTE | 2019-06-25 15:31 | PDOC.HOSPP ---
- Subjective Encounter Date: 06/25/19 Encounter Time: 15:29 Subjective: Ms. Davey was seen today in follow-up of bleeding around stoma. She does not have any new complaints. - Objective Vital Signs & Weight: Vital Signs (12 hours) Temp Pulse Resp BP BP Pulse Ox 06/25/19 12:00 97.9 F 110 H 18 158/88 H 98 06/25/19 07:58 97.5 F L 90 16 137/82 99 06/25/19 04:00 98.1 F 80 20 101/62 98 Weight Weight 131 lb 7 oz I&O: 06/24/19 06/25/19 06/26/19 06:59 06:59 06:59 Intake Total 660 240 Output Total 225 Balance 435 240 Result Diagrams: 06/25/19 05:58 06/25/19 05:58 Additional Labs: Accuchecks 06/25/19 04:30 POC Glucose 101 Hospitalist ROS - Medication Medications: Active Medications Generic Name Dose Route Start Last Admin Trade Name Freq PRN Reason Stop Dose Admin Sodium Chloride 10 ml 06/24/19 21:00 06/25/19 09:22 Flush - Normal Saline IVF 10 ml Q12HR AFROOQ Administration Hosp A/P (1) Acute blood loss anemia Code(s): D62 - ACUTE POSTHEMORRHAGIC ANEMIA Status: Acute (2) Colon cancer Code(s): C18.9 - MALIGNANT NEOPLASM OF COLON, UNSPECIFIED Status: Acute - Plan * Colon cancer- with bleeding around the stoma- stable * Stable for discharge home.
--- NOTE | 2019-06-25 17:18 | DIS ---
DATE OF ADMISSION: 06/24/2019 DATE OF DISCHARGE: 06/25/2019 DISCHARGE DISPOSITION: Home. DISCHARGE DIAGNOSES: 1. Bleeding from the ostomy site. 2. Acute blood loss anemia. 3. Stage IV adenocarcinoma of the colon. DISCHARGE MEDICATIONS: Include; 1. Iron fumarate complex or Integra one tablet daily. 2. Zofran 4 mg q.6 as needed. 3. Protonix 40 mg daily. CODE STATUS: Full code. ALLERGIES: NO KNOWN DRUG ALLERGIES. HOSPITAL COURSE: Ms. Davey is a pleasant 69-year-old female, who was admitted to the hospital after she had bleeding around her colostomy site. The full details of which are outlined in the history and physical. She was seen by her general surgeon, who felt that conservative management would be ideal in her case. Pressure was placed to the area and after several hours, the bleeding ceased and did not recur overnight. And as such, she is stable for discharge and can have close outpatient followup. Job ID: [id number]
== END 2019-06-25 16:35 | disposition home or self-care (01) | DRG 394 ==
LOC: ERS 10:32 → T4-A 16:41
PROVIDERS: ADMIT Internal Medicine; ATTEND Internal Medicine
DX: K94.01 Colostomy hemorrhage (principal); D62 Acute posthemorrhagic anemia; C18.9 Malignant neoplasm of colon, unspecified; K59.00 Constipation, unspecified; F41.9 Anxiety disorder, unspecified; I10 Essential (primary) hypertension; D72.829 Elevated white blood cell count, unspecified; Z86.718 Personal history of other venous thrombosis and embolism; Z79.01 Long term (current) use of anticoagulants; Z98.51 Tubal ligation status; Z87.891 Personal history of nicotine dependence
CPT/HCPCS: 36415; 36416; 80048; 80053; 85025; 85060; 85610; 85730; 86850; 86900; 86901; 87040; 93005; 96361; 96365; 96367; 96375; J0692; J1642; J2060; J2765

== ENCOUNTER 2019-09-01 18:09 | Inpatient (IN) | payer MEDICARE, BC ==
[2019-09-01] MEDS ORDERED: Ondansetron PF 4 MG/2 ML Vial ONE (18:35)
[2019-09-01 18:40] LABS: Hemoglobin 9.7 g/dL (12.0-16.0); Mean Corpuscular HGB CONC 32.1 g/dL (32.0-36.0); Mean Corpuscular Hemoglobin 30.8 pg (27.0-31.0); Mean Corpuscular Volume 95.8 fL (78.0-98.0); Mean Platelet Volume 9.2 fL (7.4-10.4); Platelet Count 45 thou/uL (130-400); RBC Distribution Width 21.1 % (11.5-14.5); Red Blood Cell (RBC) Count 3.15 mill/uL (4.20-5.40)
[2019-09-01 18:44] LABS: INR-International Normal Ratio 1.1; PTT 29.1 sec (22.9-36.1); Prothrombin Time 14.5 sec (12.0-14.7)
[2019-09-01 18:57] LABS: ALT (SGPT) 11 U/L (8-55); AST (SGOT) 36 U/L (5-34); Albumin 3.2 g/dL (3.4-4.8); Alkaline Phosphatase 239 U/L (40-110); Anion Gap 15 mmol/L (10-20); BUN (Urea Nitrogen) 6 mg/dL (9.8-20.1); Bilirubin, Total 0.7 mg/dL (0.2-1.2); Calc. Creatinine Clearance 0 mL/min (70-130); Calcium 8.9 mg/dL (7.8-10.44); Carbon Dioxide 20 mmol/L (23-31); Chloride 107 mmol/L (98-107); Estimated GFR-MDRD 73; Globulin 3.1 g/dL (2.4-3.5); Glucose 148 mg/dL (80-115); Lipase 51 U/L (8-78); Potassium 3.5 mmol/L (3.5-5.1); Protein, Total 6.3 g/dL (6.0-8.3); Sodium 138 mmol/L (136-145)
[2019-09-01 18:58] LABS: Anisocytosis SLIGHT = 6-15 cells (100X) (0-5/hpf); Band 19 % (5-11); Hypochromia SLIGHT = 6-15 cells (100X) (0-5/hpf); Lymphocytes 7 % (21-51); MDiff Complete? YES; Monocytes 1 % (0-10); Neutrophil 72 % (42-75); Platelet Morphology Comment Appears Decreased; Polychromasia SLIGHT = 2-3 cells (100X) (0-2/hpf); Reactive Lymphocytes 1 % (0-10); Tear Drops SLIGHT = 2-5 cells (100X) (0-1/hpf)
[2019-09-01] MEDS ORDERED: Lidocaine 1% (PF) 30 ML VIAL ONE (20:19)
[2019-09-01] MEDS ORDERED: Lidocaine 1% w/Epinephrine 1:100K 20 ML VIAL ONE (20:19)
[2019-09-01 21:21] LABS: Hemoglobin 11.3 g/dL (12.0-16.0); Mean Corpuscular HGB CONC 33.5 g/dL (32.0-36.0); Mean Corpuscular Hemoglobin 31.3 pg (27.0-31.0); Mean Corpuscular Volume 93.5 fL (78.0-98.0); Mean Platelet Volume 10.5 fL (7.4-10.4); Platelet Count 25 thou/uL (130-400); RBC Distribution Width 16.5 % (11.5-14.5); White Blood Cell (WBC) Count 25.4 thou/uL (4.8-10.8)
[2019-09-01 21:39] LABS: Anisocytosis SLIGHT = 6-15 cells (100X) (0-5/hpf); MDiff Complete? YES; Platelet Morphology Comment Appears Decreased
[2019-09-01] MEDS ORDERED: Ondansetron PF 4 MG/2 ML Vial IVP PRN (23:56)
[2019-09-01] MEDS ORDERED: Ondansetron ODT 4 MG TAB PO PRN (23:56)
[2019-09-01] MEDS ORDERED: Acetaminophen 500 MG TAB PO PRN (23:56)
[2019-09-02 00:32] VITALS: BP 113/72
--- NOTE | 2019-09-02 01:48 | OP ---
DATE OF PROCEDURE: 09/01/2019 PREOPERATIVE DIAGNOSES: 1. Bleeding loop ileostomy. 2. History of metastatic colon cancer. POSTOPERATIVE DIAGNOSES: 1. Bleeding loop ileostomy. 2. History of metastatic colon cancer. PROCEDURE PERFORMED: Control of bleeding loop ileostomy edge with two [id number] 3-0 silk sutures. 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 The patient underwent a loop ileostomy. She has developed recurrent bleeding from the edge of the ileostomy. She recently underwent endoscopy through the ileostomy finding no luminal foci of hemorrhage. The patient returned to the Emergency Department today with large volume bright red bleeding per ileostomy. DESCRIPTION OF PROCEDURE: Verbal informed consent obtained. The patient was placed in spine position. Ostomy appliance was then removed. There were two bleeding points from the edge of the ileostomy. Immediate hemostasis was achieved using interrupted [id number] stitches of 3-0 silk. No further bleeding noted. There is liquid stool coming out from the ostium of the ileostomy that did not have any blood in it. The patient tolerated the procedure without any apparent complication. A new ostomy appliance was placed. She will be admitted with the Medicine Service for treatment of symptomatic anemia. Job ID: [id number]
--- NOTE | 2019-09-02 02:10 | HP ---
PRIMARY CARE PROVIDER: Dr. Diggs. CHIEF COMPLAINT: General weakness and bleeding from stoma. HISTORY OF PRESENT ILLNESS: This is a 69-year-old female with a significant history of metastatic colon cancer, undergoing current chemotherapy and status post ostomy placement with recent admission 08/27 through 08/31/2019, for bleeding from the ostomy site. The patient received packed red blood cells during her recent admission as well as evaluation by the GI Service. The patient was not felt appropriate for endoscopy at this time as her hemoglobin stabilized in the 7.8 range at the time of discharge 08/31/2019. The patient was subsequently discharged home on 08/31/2019, and states she felt increasingly weak, lightheaded, and dizzy. The patient states she noted bleeding in her ostomy site recurring at home, and her daughter drove her to the emergency room for evaluation. In the waiting room lobby, the patient apparently passed out, and was noted pale with tachycardia and hypotension. The patient was brought back into the emergency room with initial transfusion of 2 units of packed red blood cells and 1 unit of platelets. The patient was also noted hypotensive with systolics in the 50 to 60 range, receiving IV fluid resuscitation. The patient was evaluated by the General Surgery Service due to the bleeding at the ostomy site, undergoing suture placement at the ostomy and skin interface controlling the hemorrhage. The patient admits she feels much better after receiving the packed red blood cells and IV fluids with stabilization of vital signs in the emergency room. The patient did receive Zofran and fentanyl in addition to the intravenous normal saline. PAST MEDICAL HISTORY: 1. Metastatic colorectal carcinoma, undergoing current chemotherapy. 2. Hypertension. 3. History of DVT in 2017. 4. Anxiety. 5. Acute blood loss anemia, status post packed red blood cell transfusions 08/27 through 08/31/2019. PAST SURGICAL HISTORY: 1. Status post bilateral tubal ligation. 2. Status post tonsillectomy. 3. Status post diverting ileostomy. 4. Status post IVC filter placement in August 2018. 5. Status post MediPort placement in November 2018. CURRENT MEDICATIONS: 1. Iron supplements one capsule p.o. daily. 2. Zofran 4 mg p.o. q.6 hours p.r.n. 3. Protonix 40 mg p.o. daily. 4. Claritin 10 mg p.o. daily p.r.n. ALLERGIES: NO KNOWN DRUG ALLERGIES. FAMILY HISTORY: No inheritable diseases per patient report. SOCIAL HISTORY: Resides in the [facility] area. No current alcohol, tobacco, or illicit drug use. . Functional of all activities of daily living. REVIEW OF SYSTEMS: CONSTITUTIONAL: Negative for weight loss or gain, ability to conduct usual activities. SKIN: Negative for rash, itching. EYES: Negative for double vision, pain. ENT/MOUTH: Negative for nose bleeding, neck stiffness, pain, tenderness. CARDIOVASCULAR: Negative for palpitations, dyspnea on exertion, orthopnea. RESPIRATORY: Negative for shortness of breath, wheezing, cough, hemoptysis, fever or night sweats. GASTROINTESTINAL: Negative for poor appetite, abdominal pain, heartburn, nausea, vomiting, constipation, or diarrhea. GENITOURINARY: Negative for urgency, frequency, dysuria, nocturia. MUSCULOSKELETAL: Negative for pain, swelling. NEUROLOGIC/PSYCHIATRIC: Negative for anxiety, depression. ALLERGY/IMMUNOLOGIC: Negative for skin rash, bleeding tendency. Otherwise, negative except as stated per HPI. PHYSICAL EXAMINATION: VITAL SIGNS: On admission, blood pressure 69/57, pulse 115, respiratory rate 20, temperature 97.7 degrees Fahrenheit, O2 saturation 99% on room air. GENERAL APPEARANCE: This is a 69-year-old female, alert and oriented x3, pale, responsive, in no acute distress. HEENT: Pupils are equal, round, reactive to light and accommodation. Extraocular muscles are intact. No scleral icterus. No conjunctival injection. Nares patent. OP is clear. Teeth in good repair. NECK: Supple. No cervical adenopathy. No thyromegaly. No carotid bruits. No JVD appreciated. Cervical spine with full active and passive range of motion. No meningeal signs noted. CHEST: Lungs are clear to auscultation bilaterally. CARDIOVASCULAR: S1, S2 without murmur, rub, or gallop. Tachycardia noted. ABDOMEN: Rounded with bowel sounds positive in all [address] without blood clots with liquid brown stool in the bag. Mild tenderness to palpation. EXTREMITIES: Warm and dry with fair turgor. No asymmetric edema appreciated. Pulses are palpable distally at the dorsalis pedis, posterior tibial, and popliteal arteries bilaterally. Capillary refill less than 2 seconds. NEUROLOGIC: Cranial nerves 2 through 12 are grossly intact. No focal or lateralizing signs appreciated. PERTINENT LABORATORY AND X-RAY FINDINGS: Sodium 138, potassium 3.5, chloride 107, CO2 of 20, BUN 6, creatinine 0.79, glucose 148, calcium 8.9, AST 36, ALT of 11, alkaline phosphatase 239. Troponin I negative x1. Albumin 3.2, lipase 51. CBC showed a white blood cell count ranging between 25.4 to 47.0, hemoglobin ranged between 9.7 to 11.3, platelet count ranged between 25 to 45 with 19% bandemia. CT of the abdomen and pelvis dated 08/28/2019, showed diffuse stable peritoneal metastatic process. Large multi-lobulated hypodense mass involving the rectum. Inferior vena cava filter in place. Telemetry monitoring shows sinus tachycardia with heart rates in the low 100s. ASSESSMENT/PLAN: 1. Hemorrhagic shock secondary to stomal bleed. The patient will be admitted to the telemetry unit. Initial management in the emergency room with suture placement by General Surgery with hemostasis obtained. Status post 3 units of packed red blood cells and 1 unit of platelets. Continue serial hemoglobin and hematocrit monitoring with repeat CBC in the a.m. Continue intravenous normal saline at 100 mL/h. Avoid antihypertensive medications. 2. Acute blood loss anemia secondary to stomal bleed. See #1 above. Serial hemoglobin and hematocrit monitoring. Repeat CBC in the a.m. 3. Syncope secondary to #1, stable currently. Blood pressure overall improved with packed red blood cells and IV fluids. Supportive management. 4. Metastatic colon carcinoma. The patient will follow up with Medical Oncology Service for ongoing chemotherapy after discharge. 5. Leukocytosis secondary to Neulasta. Continue serial CBC monitoring. 6. Prophylaxis. Sequential compression devices while in bed. Protonix 40 mg p.o. daily. 7. Code status, full. Surrogate medical decision maker is the patient's spouse. Job ID: [id number]
[2019-09-02] MEDS: Sodium Chloride 0.9% 1,000 ML IV SCH ×2 (02:12→10:51)
[2019-09-02 02:48] VITALS: BMI 22.8
[2019-09-02 04:21] VITALS: TEMP 97.8
[2019-09-02 04:27] LABS: Platelet Count 26 thou/uL (130-400)
[2019-09-02 04:57] LABS: Hemoglobin 9.6 g/dL (12.0-16.0); Mean Corpuscular HGB CONC 32.9 g/dL (32.0-36.0); Mean Corpuscular Hemoglobin 30.1 pg (27.0-31.0); Mean Corpuscular Volume 91.6 fL (78.0-98.0); Mean Platelet Volume 9.9 fL (7.4-10.4); RBC Distribution Width 16.8 % (11.5-14.5); Red Blood Cell (RBC) Count 3.18 mill/uL (4.20-5.40); White Blood Cell (WBC) Count 19.9 thou/uL (4.8-10.8)
[2019-09-02 05:28] LABS: Anion Gap 9 mmol/L (10-20); BUN (Urea Nitrogen) 8 mg/dL (9.8-20.1); Calc. Creatinine Clearance 77 mL/min (70-130); Calcium 8.1 mg/dL (7.8-10.44); Carbon Dioxide 23 mmol/L (23-31); Chloride 111 mmol/L (98-107); Estimated GFR-MDRD Greater than 90; Glucose 80 mg/dL (80-115); Potassium 3.9 mmol/L (3.5-5.1); Sodium 139 mmol/L (136-145)
[2019-09-02 05:50] LABS: Band 9 % (5-11); Lymphocytes 7 % (21-51); MDiff Complete? YES; Monocytes 3 % (0-10); Neutrophil 81 % (42-75); Platelet Morphology Comment Appears Decreased
[2019-09-02] MEDS ORDERED: Iron Fum,Ps Cmp/Vit C/Niacin [Integra] 1 CAP PO SCH (09:00)
[2019-09-02 13:59] LABS: ALT (SGPT) 10 U/L (8-55); AST (SGOT) 35 U/L (5-34); Albumin 2.8 g/dL (3.4-4.8); Alkaline Phosphatase 168 U/L (40-110); Bilirubin, Direct 0.3 mg/dL (0.1-0.3); Bilirubin, Total 0.8 mg/dL (0.2-1.2); Protein, Total 5.3 g/dL (6.0-8.3)
[2019-09-02 14:09] LABS: Hemoglobin 10.5 g/dL (12.0-16.0); Mean Corpuscular HGB CONC 33.4 g/dL (32.0-36.0); Mean Corpuscular Hemoglobin 30.9 pg (27.0-31.0); Mean Corpuscular Volume 92.5 fL (78.0-98.0); Mean Platelet Volume 10.9 fL (7.4-10.4); Platelet Count 31 thou/uL (130-400); RBC Distribution Width 17.2 % (11.5-14.5); Red Blood Cell (RBC) Count 3.41 mill/uL (4.20-5.40); White Blood Cell (WBC) Count 12.1 thou/uL (4.8-10.8)
== END 2019-09-02 15:44 | disposition home or self-care (01) | DRG 356 ==
LOC: ERS 18:09 → T4-A 22:29 → CCU 09-02 02:20
PROVIDERS: ADMIT Family Medicine; ATTEND Family Medicine
PROC: 0W3P3ZZ Control Bleeding in Gastrointestinal Tract, Percutaneous Approach (ICD-10-PCS; principal; 2019-09-01)
PROC: 30233R1 Transfusion of Nonautologous Platelets into Peripheral Vein, Percutaneous Approach (ICD-10-PCS; 2019-09-01)
PROC: 30233N1 Transfusion of Nonautologous Red Blood Cells into Peripheral Vein, Percutaneous Approach (ICD-10-PCS; 2019-09-01)
DX: K94.11 Enterostomy hemorrhage (principal); R57.8 Other shock; C78.6 Secondary malignant neoplasm of retroperitoneum and peritoneum; D62 Acute posthemorrhagic anemia; C19 Malignant neoplasm of rectosigmoid junction; Y83.3 Surgical operation with formation of external stoma as the cause of abnormal reaction of the patient, or of later complication, without mention of misadventure at the time of the procedure; F41.9 Anxiety disorder, unspecified; D72.829 Elevated white blood cell count, unspecified; T45.8X5A Adverse effect of other primarily systemic and hematological agents, initial encounter; Z86.718 Personal history of other venous thrombosis and embolism; Z98.51 Tubal ligation status; Z79.899 Other long term (current) drug therapy
CPT/HCPCS: 36415; 36430; 80048; 80053; 80076; 83690; 84484; 85025; 85610; 85730; 86850; 86900; 86901; 93005; 94760; J2001; J2405; P9016; P9035